=== PATIENT | female | born 1945 | race Asian ===

== ENCOUNTER 2017-11-29 13:01 | Inpatient (IN) ==
[2017-11-29] MEDS ORDERED: cloNIDine HCl 0.1 MG TABLET PO PRN (17:29)
[2017-11-30 05:04] LABS: Basophils # 0.1 K/mcL (0.0-0.2); Basophils % 0.7 %; Eosinophils # 0.2 K/mcL (0.0-0.6); Eosinophils % 2.8 %; Hematocrit 40.1 % (35.3-44.9); Hemoglobin 13.9 g/dL (11.5-15.4); Immature Granulocytes % 0.2 % (0-4); Lymphocytes # 2.4 K/mcL (0.6-4.6); Mean Corpuscular HGB Conc 34.7 g/dL (31.6-35.5); Mean Corpuscular Hemoglobin 30.4 pg (28.0-33.3); Mean Corpuscular Volume 87.7 fL (83.0-100.0); Mean Platelet Volume 8.4 fL (9.4-12.4); Monocytes # 0.8 K/mcL (0.0-1.3); Monocytes % 9.7 %; Neutrophils # 4.7 K/mcL (1.6-8.9); Platelet Count 348 K/mcL (140-400); Red Blood Count 4.57 M/mcL (3.82-4.97); Red Cell Distribution Width 12.6 % (11.5-14.5); Segmented Neutrophils % 57.6 %
[2017-11-30 05:08] LABS: Prothrombin Time 11.7 Seconds (9.4-12.1)
[2017-11-30 05:19] LABS: BUN/Creatinine Ratio 33 (6-26); Blood Urea Nitrogen 22 mg/dL (8-23); Calcium 9.2 mg/dL (8.6-10.3); Carbon Dioxide 26 mEq/L (23-29); Chloride 100 mEq/L (98-107); Glucose 163 mg/dL (70-105); Osmolality,Calculated 289 (280-300); Potassium 3.5 mEq/L (3.5-5.1); Sodium 136 mEq/L (136-145); eGFR For Non-African Americans > 60 (> 60)
[2017-11-30] MEDS: hydroCHLOROthiazide 25 MG TABLET PO SCH (08:45)
[2017-11-30] MEDS: Fenofibrate 54 MG TABLET PO SCH (08:46)
[2017-11-30] MEDS: amLODIPine 5 MG TABLET PO SCH (08:46)
[2017-11-30] MEDS: Aspirin Enteric Coated 81 MG Tablet PO SCH (08:46)
[2017-11-30] MEDS: *HR* Enoxaparin 40 MG/0.4 ML SYRINGE SQ SCH (09:07)
--- NOTE | 2017-11-30 10:36 | Internal Med History&Physical ---
Date of Encounter: 11/30/17 Time of Encounter: 10:34 Assessment and Plan (1) Cerebrovascular accident Current visit: Yes Status: Acute Continue Statin and Plavix. No new neurological deficits. PT and OT, ST to eval and treat. Will follow progress. Follow up with neurology as scheduled. Qualifiers: CVA mechanism: unspecified Qualified Code(s): I63.9 - Cerebral infarction, unspecified (2) DVT prophylaxis Current visit: Yes Status: Acute Continue Lovenox. (3) Hypertension Current visit: Yes Status: Acute Controlled with Norvasc and hydrochlorothiazide. Monitor blood pressure. Qualifiers: Hypertension type: unspecified Qualified Code(s): I10 - Essential (primary ) hypertension (4) Mixed hyperlipidemia Current visit: Yes Status: Acute Continue Statin and fenofibrate. Internal Medicine - H&P: HPI Admitted From: Hospital to Hospital Transfer Plans for Post Hospital Care: Home History of present illness: Ms. Robertson is a 71 year old female admitted to inpatient rehab status post CVA. Patient presented to [facility] on 11/26/2017 4 right-sided weakness and inability to walk. Patient also had slurred speech. Did not seek medical attention until 48 hours later. Patient has no previous past medical history and was not on any prior medications at home. Was found to be hypertensive and the emergency room and elevated random glucose level. Hemoglobin A-1 C of 6.6. Lipids were also significantly elevated. Lives at home alone with . 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 Slight right facial droop and slurred speech. Denies any visual change. No new neurological deficits at this time. Maintaining appetite and hydration. Nursing staff notes patient is pocketing food. Family currently have bedside. States bowels are moving as normal. Plan is to have physical therapy, occupational therapy and speech therapy eval and treat. Then the plan is for patient to discharge to home with . Past Med Surg Social Fam HX - Past Medical History Medical history: hyperlipidemia, hypertension Additional medical history: cervial cancer Psychiatric history: no psych history - Social History Smoking Status: Former smoker Smokeless Tobacco Status: No Alcohol use: rarely Drug use: none Internal Medicine - H&P: Meds Acetaminophen [Tylenol] 650 mg PO Q6HR PRN 11/29/17 [History] Aspirin Enteric Coated [Aspirin EC] 81 mg PO DAILY tablet. 11/29/17 [Rx] Atorvastatin [Lipitor] 80 mg PO HS tablet 11/29/17 [Rx] Clopidogrel [Plavix] 75 mg PO DAILY tablet 11/29/17 [Rx] Fenofibrate [Tricor] 54 mg PO DAILY tablet 11/29/17 [Rx] Sennosides/Docusate Sodium [Senna Plus] 1 each PO DAILY PRN tablet 11/29/17 [Rx ] amLODIPine [Norvasc] 10 mg PO DAILY tablet 11/29/17 [Rx] hydroCHLOROthiazide [Hydrochlorothiazide] 12.5 mg PO DAILY tablet 11/29/17 [Rx] 3 Allergy/AdvReac Type Severity Reaction Status Date / Time No Known Allergies Allergy Verified 11/25/17 19:15 All Systems PM: A 10-system review of systems was performed and is negative for pertinent findings except as documented above in the HPI. - Constitutional Constitutional: no chills, no fever(s), no night sweats - EENT Eyes: no change in vision, no discharge, no pain, no photophobia Ears: no ear discharge, no ear pain, no tinnitus Nose, mouth and throat: no dysphagia, no nasal discharge, no neck pain, no sore throat - Cardiovascular Cardiovascular ROS IM: no chest pain, no diaphoresis, no dyspnea, no lightheadedness, no palpitations, no syncope - Respiratory Respiratory: no cough, no dyspnea, no wheezing, no excessive phlegm production - Gastrointestinal Gastrointestinal: no abdominal pain, no diarrhea, no hematemesis, no hematochezia, no melena, no nausea, no vomiting - Genitourinary Genitourinary: no change in urinary stream, no dysuria, no flank pain, no hematuria - Musculoskeletal Musculoskeletal ROS IM: no numbness, no tingling - Integumentary Integumentary IM: no rash, no unusual bruising - Neurological Neurological ROS: no confusion, no convulsions, no focal weakness, no numbness, no tingling, no tremor(s) - Hematologic/Lymphatic Hematologic/Lymphatic: no easy bruising - Constitutional Vitals: Temp Pulse Resp BP Pulse Ox 98.6 F 78 16 159/80 97 11/30/17 06:00 11/30/17 06:00 11/30/17 06:00 11/30/17 06:00 11/30/17 06:00 General appearance: Present: cooperative, A&O X 3, pleasant, no acute distress, answers questions appropriately Exam: slight right facial droop - Head Head exam: Present: atraumatic, normocephalic - Eye Eye exam: Present: PERRL, conjuntiva pink, sclera anicteric Pupils: Present: PERRL - Neck Neck exam general surgery: Present: supple, trachea midline. Absent: lymphadenopathy - Respiratory Respiratory exam: Present: CTAB. Absent: accessory muscle use, rales, rhonchi, wheezes - Cardiovascular Cardiovascular exam: Present: RRR, +S1, +S2. Absent: diastolic murmur, gallop, rubs, systolic murmur - GI/Abdominal GI/Abdominal exam: Present: normal bowel sounds, soft, no peritoneal signs. Absent: distended, tenderness - Extremities Exam Extremities exam: Present: warm, radial pulses palpable and symmetrical. Absent : calf tenderness, cyanotic, pedal edema Additional comments: Right upper extremity 2/5. no boiler water tester strength. right shoulder strength 3/5, right lower extremity strength 3/5, able to raise leg off bed. LUE and LLE strength 5/5. - Neurological Exam Neurological exam: Present: CN II-XII intact, oriented X3, no focal deficits. Absent: pronater drift, facial droop, speech deficit - Expanded Neurological Exam Patient oriented to: Present: person, place, time Speech: Present: slurred Cranial Nerves: EOM's intact PM: Normal, nystagmus PM: Normal, tongue deviation PM: Normal Coma Scale Motor Response: Obeys Commands Coma Scale Verbal Response: Oriented - Skin Skin exam: Present: dry, intact Internal Med - H&P Results - Labs CBC & Chem 7: 11/30/17 04:55 11/30/17 04:55 Labs: Short CBC 11/30/17 Range/Units 04:55 WBC 8.1 (4.3-11.1) K/mcL Hgb 13.9 (11.5-15.4) g/dL Hct 40.1 (35.3-44.9) % Plt Count 348 (140-400) K/mcL Neutrophils # 4.7 (1.6-8.9) K/mcL BMP 11/30/17 04:55 Sodium 136 Potassium 3.5 Chloride 100 Carbon Dioxide 26 BUN 22 Creatinine 0.66 Glucose 163 H Calcium 9.2
[2017-12-01] MEDS: *HR* Enoxaparin 40 MG/0.4 ML SYRINGE SQ SCH (06:29)
[2017-12-01] MEDS: amLODIPine 5 MG TABLET PO SCH (09:31)
[2017-12-01] MEDS: hydroCHLOROthiazide 25 MG TABLET PO SCH (09:31)
[2017-12-01] MEDS: Aspirin Enteric Coated 81 MG Tablet PO SCH (09:31)
[2017-12-01] MEDS: Fenofibrate 54 MG TABLET PO SCH (09:31)
--- NOTE | 2017-12-01 15:38 | Internal Med Progress Note ---
Date of Encounter: 12/01/17 Time of Encounter: 11:30 - Assessment and plan (1) Cerebrovascular accident Current Visit: Yes Status: Acute Assessment and plan: We will continue her therapies as planned. Safety assessments and process. Qualifiers: CVA mechanism: unspecified Qualified Code(s): I63.9 - Cerebral infarction, unspecified (2) Hypertension Current Visit: Yes Status: Acute Assessment and plan: Moderately controlled. Will follow. 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 (4) Mixed hyperlipidemia Current Visit: Yes Status: Acute Assessment and plan: She continues on statin agent. - Subjective Interval history: Patient without complaint. She is working with therapy, per her. Bowels and bladder are functioning well. Patient has no complaint of chest discomfort, dyspnea, orthopnea, palpitations, nausea or vomiting, constipation or diarrhea, other changes in bowel habits, difficulty with urination, rash or itching, or other new complaints, except as mentioned above. Review of systems is otherwise negative. I discussed management of her care with nursing staff. - Constitutional Vitals: Temp Pulse Resp BP Pulse Ox 98.1 F 92 17 156/85 97 12/01/17 07:36 12/01/17 10:21 12/01/17 10:21 12/01/17 10:21 12/01/17 10:21 General appearance: Present: cooperative, A&O X 3, pleasant, no acute distress, answers questions appropriately Exam: Examination: (Except as mentioned above): General: In no apparent distress. Alert and oriented 3. Nondiaphoretic. Head: Atraumatic and normocephalic. Respiratory: No use of accessory muscles. Lungs are clear throughout. Normal airflow. Cardiovascular: Regular rate and rhythm without murmur appreciated. Abdomen: Bowel sounds are normal. No hepatosplenomegaly mass or tenderness appreciated. Obese and therefore difficult to palpate deeply. Extremities: No cyanosis clubbing or edema. Skin: Warm and non-diaphoretic with no new lesions noted. No change in right sided deficits versus yesterday. Internal Medicine: Result - Labs CBC & Chem 7: 11/30/17 04:55 11/30/17 04:55 - ABG Interpretation ABG results: PT/INR, D-dimer PT 11.7 Seconds (9.4-12.1) 11/30/17 04:55 Consult Discharge Plan - Plan Referrals: NONE,PCP [Primary Care Provider] -
[2017-12-02] MEDS: *HR* Enoxaparin 40 MG/0.4 ML SYRINGE SQ SCH (06:13)
[2017-12-02] MEDS: Aspirin Enteric Coated 81 MG Tablet PO SCH (08:55)
[2017-12-02] MEDS: amLODIPine 5 MG TABLET PO SCH (08:55)
[2017-12-02] MEDS: hydroCHLOROthiazide 25 MG TABLET PO SCH (08:56)
[2017-12-02] MEDS: Fenofibrate 54 MG TABLET PO SCH (08:56)
--- NOTE | 2017-12-02 12:03 | Internal Med Progress Note ---
Date of Encounter: 12/02/17 Time of Encounter: 12:01 - Assessment and plan (1) Cerebrovascular accident Current Visit: Yes Status: Acute Assessment and plan: PT and OT and speech therapy to eval and treat. will follow progress. no new neurological deficits. f/u with neurologist as scheduled. Qualifiers: CVA mechanism: unspecified Qualified Code(s): I63.9 - Cerebral infarction, unspecified (2) DVT prophylaxis Current Visit: Yes Status: Acute Assessment and plan: continue Lovenox. (3) Hypertension Current Visit: Yes Status: Acute Assessment and plan: controlled with current meds. monitor BP. Qualifiers: Hypertension type: unspecified Qualified Code(s): I10 - Essential (primary ) hypertension (4) Mixed hyperlipidemia Current Visit: Yes Status: Acute - Subjective Interval history: Participating well with therapy. Transfers with min assist. Last bowel movement was this morning. Denies any pain or complaints at this time. No new neurological deficits. - Constitutional Vitals: Temp Pulse Resp BP Pulse Ox 98.2 F 90 16 146/82 95 12/02/17 09:00 12/02/17 09:00 12/02/17 09:00 12/02/17 09:00 12/02/17 09:00 General appearance: Present: cooperative, A&O X 3, pleasant, no acute distress, answers questions appropriately Exam: Slight right facial droop, slight slurred speech. - Head Head exam: Present: atraumatic, normocephalic - Eye Eye exam: Present: PERRL, conjuntiva pink, sclera anicteric Pupils: Present: PERRL - Neck Neck exam general surgery: Present: supple, trachea midline. Absent: lymphadenopathy - Respiratory Respiratory exam: Present: CTAB. Absent: accessory muscle use, rales, rhonchi, wheezes - Cardiovascular Cardiovascular exam: Present: RRR, +S1, +S2. Absent: diastolic murmur, gallop, rubs, systolic murmur - GI/Abdominal GI/Abdominal exam: Present: normal bowel sounds, soft, no peritoneal signs. Absent: distended, tenderness - Extremities Exam Extremities exam: Present: warm, radial pulses palpable and symmetrical. Absent : calf tenderness, cyanotic, pedal edema Additional comments: Right hand flaccid. Unable to grasp. Right Elbow to shoulder 3\5 strength. Right lower extremity 4/5. LUE and LLE strength 5/5. - Neurological Exam Neurological exam: Present: CN II-XII intact, oriented X3, no focal deficits. Absent: pronater drift, facial droop, speech deficit - Skin Skin exam: Present: dry, intact Internal Medicine: Result - Labs CBC & Chem 7: 11/30/17 04:55 11/30/17 04:55 - ABG Interpretation ABG results: PT/INR, D-dimer PT 11.7 Seconds (9.4-12.1) 11/30/17 04:55 Consult Discharge Plan - Plan Referrals: NONE,PCP [Primary Care Provider] -
[2017-12-03] MEDS: *HR* Enoxaparin 40 MG/0.4 ML SYRINGE SQ SCH (05:32)
[2017-12-03 06:15] LABS: Hematocrit 40.9 % (35.3-44.9); Mean Corpuscular HGB Conc 34.2 g/dL (31.6-35.5); Mean Corpuscular Hemoglobin 30.4 pg (28.0-33.3); Mean Corpuscular Volume 88.7 fL (83.0-100.0); Mean Platelet Volume 8.8 fL (9.4-12.4); Platelet Count 388 K/mcL (140-400); Red Blood Count 4.61 M/mcL (3.82-4.97); Red Cell Distribution Width 12.4 % (11.5-14.5)
[2017-12-03 06:28] LABS: BUN/Creatinine Ratio 30 (6-26); Blood Urea Nitrogen 21 mg/dL (8-23); Calcium 9.7 mg/dL (8.6-10.3); Carbon Dioxide 29 mEq/L (23-29); Chloride 98 mEq/L (98-107); Glucose 178 mg/dL (70-105); Osmolality,Calculated 281 (280-300); Potassium 3.7 mEq/L (3.5-5.1); Sodium 132 mEq/L (136-145); eGFR For Non-African Americans > 60 (> 60)
[2017-12-03] MEDS: Fenofibrate 54 MG TABLET PO SCH (08:21)
[2017-12-03] MEDS: hydroCHLOROthiazide 25 MG TABLET PO SCH (08:21)
[2017-12-03] MEDS: amLODIPine 5 MG TABLET PO SCH (08:21)
[2017-12-03] MEDS: Aspirin Enteric Coated 81 MG Tablet PO SCH (08:21)
--- NOTE | 2017-12-03 10:36 | Internal Med Progress Note ---
Addendum entered and electronically signed by Dean Teresa MD 12/04/17 13:33: Multiple attempts to see patient yesterday were unsuccessful. Patient not seen for this reason. Original Note: Date of Encounter: 12/03/17 Time of Encounter: 10:34 - Assessment and plan (1) Cerebrovascular accident Current Visit: Yes Status: Acute Assessment and plan: PT and OT and speech therapy to eval and treat. will follow progress. no new neurological deficits. f/u with neurologist as scheduled. Qualifiers: CVA mechanism: unspecified Qualified Code(s): I63.9 - Cerebral infarction, unspecified (2) DVT prophylaxis Current Visit: Yes Status: Acute Assessment and plan: continue Lovenox. (3) Hypertension Current Visit: Yes Status: Acute Assessment and plan: controlled with current meds. monitor BP. Qualifiers: Hypertension type: unspecified Qualified Code(s): I10 - Essential (primary) hypertension (4) Mixed hyperlipidemia Current Visit: Yes Status: Acute Assessment and plan: continue Lipitor. - Time Spent With Patient less than 15 minutes - Subjective Interval history: Participating well with therapy. Transfers with min assist. Last bowel movement was this morning. Denies any pain or complaints at this time. No new neurological deficits. Maintaining appetite and hydration. - Constitutional Vitals: Temp Pulse Resp BP Pulse Ox 98.5 F 84 16 134/69 96 12/03/17 07:39 12/03/17 07:39 12/03/17 07:39 12/03/17 07:39 12/03/17 07:39 General appearance: Present: cooperative, A&O X 3, pleasant, no acute distress, answers questions appropriately - Head Head exam: Present: atraumatic, normocephalic - Eye Eye exam: Present: PERRL, conjuntiva pink, sclera anicteric Pupils: Present: PERRL - Neck Neck exam general surgery: Present: supple, trachea midline. Absent: lymphadenopathy - Respiratory Respiratory exam: Present: CTAB. Absent: accessory muscle use, rales, rhonchi, wheezes - Cardiovascular Cardiovascular exam: Present: RRR, +S1, +S2. Absent: diastolic murmur, gallop, rubs, systolic murmur - GI/Abdominal GI/Abdominal exam: Present: normal bowel sounds, soft, no peritoneal signs. Absent: distended, tenderness - Extremities Exam Extremities exam: Present: warm, radial pulses palpable and symmetrical. Absent: calf tenderness, cyanotic, pedal edema Additional comments: Strength 5\5 left upper and lower extremity. Strength 4\5 right hip and knee. Ankle no movement. right shoulder 5\5 right elbow 5\5, unable to move wrist or grasp hand - Neurological Exam Neurological exam: Present: CN II-XII intact, oriented X3, no focal deficits. Absent: pronater drift, facial droop, speech deficit - Skin Skin exam: Present: dry, intact Internal Medicine: Result - Labs CBC & Chem 7: 12/03/17 05:55 12/03/17 05:55 Labs: Short CBC 12/03/17 Range/Units 05:55 WBC 9.9 (4.3-11.1) K/mcL Hgb 14.0 (11.5-15.4) g/dL Hct 40.9 (35.3-44.9) % Plt Count 388 (140-400) K/mcL BMP 12/03/17 05:55 Sodium 132 L Potassium 3.7 Chloride 98 Carbon Dioxide 29 BUN 21 Creatinine 0.69 Glucose 178 H Calcium 9.7 - ABG Interpretation ABG results: PT/INR, D-dimer PT 11.7 Seconds (9.4-12.1) 11/30/17 04:55 Consult Discharge Plan - Plan Referrals: NONE,PCP [Primary Care Provider] -
--- NOTE | 2017-12-03 16:30 | Psychological Evaluation ---
Date of Encounter: 12/03/17 Time of Encounter: 02:00 History of Present Illness History of present illness: Ms. Robertson is a 71 year old female admitted to inpatient rehab status post CVA. Patient presented to [facility] on 11/26/2017 4 right-sided weakness and inability to walk. Patient also had slurred speech. Did not seek medical attention until 48 hours later. Patient has no previous past medical history and was not on any prior medications at home. Was found to be hypertensive and the emergency room and elevated random glucose level. Hemoglobin A-1 C of 6.6. Lipids were also significantly elevated. Lives at home alone with . 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 Slight right facial droop and slurred speech. Denies any visual change. No new neurological deficits at this time. Maintaining appetite and hydration. Nursing staff notes patient is pocketing food. Plan is to have physical therapy, occupational therapy and speech therapy eval and treat. Then the plan is for patient to discharge to home with . Home Medications and Allergies Acetaminophen [Tylenol] 650 mg PO Q6HR PRN 11/29/17 [History] Aspirin Enteric Coated [Aspirin EC] 81 mg PO DAILY tablet. 11/29/17 [Rx] Atorvastatin [Lipitor] 80 mg PO HS tablet 11/29/17 [Rx] Clopidogrel [Plavix] 75 mg PO DAILY tablet 11/29/17 [Rx] Fenofibrate [Tricor] 54 mg PO DAILY tablet 11/29/17 [Rx] Sennosides/Docusate Sodium [Senna Plus] 1 each PO DAILY PRN tablet 11/29/17 [Rx ] amLODIPine [Norvasc] 10 mg PO DAILY tablet 11/29/17 [Rx] hydroCHLOROthiazide [Hydrochlorothiazide] 12.5 mg PO DAILY tablet 11/29/17 [Rx] 3 Allergy/AdvReac Type Severity Reaction Status Date / Time No Known Allergies Allergy Verified 11/25/17 19:15 Social History - Alcohol Use Alcohol Use: occasionally - Drug Use Drug Use: none ( 47 years and in [place] 46 years. Has 1 son and 2 grandchildren. [employer] school in [place]. ) Cognitive/Emotional Assessment - Cognitive Ability Level of Alertness: Alert (Some confusion with questioning noted. Very difficult to understand what she is communicating. ) Orientation: Person, Place (Memory was 0/3 words after 5min. Able to spell WORLD forward and backward. Knew pres, previous ores and govenor; difficutly after 4 series of serial 3's. Unable to accurately calculate simple math in her head.) Ability to Follow Directions: Good - Emotional Status Mood Description: Euthymic/stable, Anxious Affect Description: Full range (Displays Aphasia) Assessment & Plan - Diagnosis (1) Adjustment disorder with anxiety - Prognosis Prognosis: Fair Procedures - Intervention Interventions: Supportive Counseling - Participants Therapy Participant: Patient - Session Time Session Start Time: 02:00 Session Stop Time: 02:30
--- NOTE | 2017-12-04 13:36 | Internal Med Progress Note ---
Date of Encounter: 12/04/17 Time of Encounter: 13:34 - Assessment and plan (1) Cerebrovascular accident Current Visit: Yes Status: Acute Assessment and plan: We will continue therapies as per plan. She will require several more weeks? Qualifiers: CVA mechanism: unspecified Qualified Code(s): I63.9 - Cerebral infarction, unspecified (2) Hypertension Current Visit: Yes Status: Acute Assessment and plan: Control is better. Will follow. 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 (4) Mixed hyperlipidemia Current Visit: Yes Status: Acute Assessment and plan: She continues on statin agent. - Subjective Interval history: Patient without complaint. Her broken Romansh makes communication difficult but she seems to have no issues. She states that she needs exercise only for her right extremities. Bowels are moving okay. No other issues. Patient has no complaint of chest discomfort, dyspnea, orthopnea, palpitations, nausea or vomiting, constipation or diarrhea, other changes in bowel habits, difficulty with urination, rash or itching, or other new complaints, except as mentioned above. Review of systems is otherwise negative. I discussed management of her care with nursing staff. - Constitutional Vitals: Temp Pulse Resp BP Pulse Ox 97.6 F 87 14 144/73 97 12/03/17 19:19 12/03/17 19:19 12/03/17 19:19 12/03/17 19:19 12/03/17 19:19 General appearance: Present: answers questions appropriately Exam: Examination: (Except as mentioned above): General: In no apparent distress. Alert and oriented 3. Nondiaphoretic. Head: Atraumatic and normocephalic. Respiratory: No use of accessory muscles. Lungs are clear throughout. Normal airflow. Cardiovascular: Regular rate and rhythm without murmur appreciated. Abdomen: Bowel sounds are normal. No hepatosplenomegaly mass or tenderness appreciated. Extremities: No cyanosis clubbing or edema. Skin: Warm and non-diaphoretic with no new lesions noted. Neurologic: Minimal right shoulder and hip abduction/flexion. Distal extremity function is absent. Internal Medicine: Result - Labs CBC & Chem 7: 12/03/17 05:55 12/03/17 05:55 - ABG Interpretation ABG results: PT/INR, D-dimer PT 11.7 Seconds (9.4-12.1) 11/30/17 04:55 Consult Discharge Plan - Plan Referrals: NONE,PCP [Primary Care Provider] -
[2017-12-04] MEDS ORDERED: Fenofibrate 54 MG TABLET PO ONE (14:16)
[2017-12-04] MEDS ORDERED: *HR* Enoxaparin 40 MG/0.4 ML SYRINGE SQ ONE (14:16)
[2017-12-04] MEDS ORDERED: amLODIPine 5 MG TABLET PO ONE (14:16)
[2017-12-04] MEDS ORDERED: Aspirin Enteric Coated 81 MG Tablet PO ONE (14:16)
[2017-12-04] MEDS ORDERED: hydroCHLOROthiazide 25 MG TABLET PO ONE (14:16)
[2017-12-04] MEDS: Aspirin Enteric Coated 81 MG Tablet PO SCH (19:44)
[2017-12-04] MEDS: *HR* Enoxaparin 40 MG/0.4 ML SYRINGE SQ SCH (19:44)
[2017-12-04] MEDS: hydroCHLOROthiazide 25 MG TABLET PO SCH (19:45)
[2017-12-04] MEDS: amLODIPine 5 MG TABLET PO SCH (19:45)
[2017-12-04] MEDS: Fenofibrate 54 MG TABLET PO SCH (19:45)
[2017-12-05] MEDS: *HR* Enoxaparin 40 MG/0.4 ML SYRINGE SQ SCH (05:42)
[2017-12-05] MEDS: Aspirin Enteric Coated 81 MG Tablet PO SCH (10:23)
[2017-12-05] MEDS: hydroCHLOROthiazide 25 MG TABLET PO SCH (10:23)
[2017-12-05] MEDS: amLODIPine 5 MG TABLET PO SCH (10:23)
[2017-12-05] MEDS: Fenofibrate 54 MG TABLET PO SCH (10:24)
--- NOTE | 2017-12-05 12:46 | Internal Med Progress Note ---
Date of Encounter: 12/05/17 Time of Encounter: 12:44 - Assessment and plan (1) Cerebrovascular accident Current Visit: Yes Status: Acute Assessment and plan: We will continue therapies as per plan. Qualifiers: CVA mechanism: unspecified Qualified Code(s): I63.9 - Cerebral infarction, unspecified (2) Hypertension Current Visit: Yes Status: Acute Assessment and plan: Control is adequate. 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 (4) Mixed hyperlipidemia Current Visit: Yes Status: Acute Assessment and plan: She continues on statin agent. (5) Constipation Current Visit: Yes Status: Acute Assessment and plan: Patient has MiraLAX as needed and will give at least a half dose of magnesium citrate today. Qualifiers: Constipation type: slow transit constipation Qualified Code(s): K59.01 - Slow transit constipation - Subjective Interval history: The patient notes that she has not had a bowel movement since her arrival here, in fact, for 5 days. She has no other complaints and is participating well with therapy. Patient has no complaint of chest discomfort, dyspnea, orthopnea, palpitations, nausea or vomiting, constipation or diarrhea, other changes in bowel habits, difficulty with urination, rash or itching, or other new complaints, except as mentioned above. Review of systems is otherwise negative. I discussed management of her care with nursing staff. - Constitutional Vitals: Temp Pulse Resp BP Pulse Ox 98.2 F 93 16 134/76 96 12/05/17 07:20 12/05/17 07:20 12/05/17 07:20 12/05/17 07:20 12/05/17 07:20 Exam: Examination: (Except as mentioned above): General: In no apparent distress. Alert and oriented 3. Nondiaphoretic. Head: Atraumatic and normocephalic. Respiratory: No use of accessory muscles. Lungs are clear throughout. Normal airflow. Cardiovascular: Regular rate and rhythm without murmur appreciated. Abdomen: Bowel sounds are normal. No hepatosplenomegaly mass or tenderness appreciated. Obese and therefore difficult to palpate deeply. Patient is examined upright in chair and this also limits exam. Extremities: No cyanosis clubbing or edema. Skin: Warm and non-diaphoretic with no new lesions noted. Neurologic: Patient still with only hip and shoulder motion at right. She has mild left facial weakness. Grasp strength and all foot and ankle strength is missing. No change from admission. Internal Medicine: Result - Labs CBC & Chem 7: 12/03/17 05:55 12/03/17 05:55 - ABG Interpretation ABG results: PT/INR, D-dimer PT 11.7 Seconds (9.4-12.1) 11/30/17 04:55 Consult Discharge Plan - Plan Referrals: NONE,PCP [Primary Care Provider] -
[2017-12-06] MEDS: *HR* Enoxaparin 40 MG/0.4 ML SYRINGE SQ SCH (06:28)
[2017-12-06] MEDS: hydroCHLOROthiazide 25 MG TABLET PO SCH (08:14)
[2017-12-06] MEDS: Aspirin Enteric Coated 81 MG Tablet PO SCH (08:14)
[2017-12-06] MEDS: amLODIPine 5 MG TABLET PO SCH (08:14)
[2017-12-06] MEDS: Fenofibrate 54 MG TABLET PO SCH (08:14)
--- NOTE | 2017-12-06 14:57 | Internal Med Progress Note ---
Date of Encounter: 02/05/18 Time of Encounter: 14:40 - Assessment and plan (1) Cerebrovascular accident Current Visit: Yes Status: Acute Assessment and plan: Continue therapies as planned. Qualifiers: CVA mechanism: unspecified Qualified Code(s): I63.9 - Cerebral infarction, unspecified (2) Hypertension Current Visit: Yes Status: Acute Assessment and plan: Continue current regimen, adjust as appropriate/needed. 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 (4) Mixed hyperlipidemia Current Visit: Yes Status: Acute Assessment and plan: Continue statin. (5) Constipation Current Visit: Yes Status: Acute Assessment and plan: Continue PRN Senna Plus. Qualifiers: Constipation type: slow transit constipation Qualified Code(s): K59.01 - Slow transit constipation - Time Spent With Patient less than 15 minutes - Subjective Interval history: Feeling well and doing well, no particular complaint at this time. - Constitutional Vitals: Temp Pulse Resp BP Pulse Ox 98.3 F 90 16 150/76 96 12/06/17 07:03 12/06/17 07:03 12/06/17 07:03 12/06/17 07:03 12/06/17 07:03 General appearance: Present: answers questions appropriately Exam: Gen: A&Ox3, NAD. HEENT: NCAT. Neck: No palpable lymphadenopathy or thyromegaly. CV: RRR, S1S2. 2/6, systolic murmur appreciated. Lungs: CTAB. Abd: (+)BS. NDNT. Neuro: RUE and RLE weakness noted. Skin: No rash. Ext: No pitting edema. Internal Medicine: Result - Labs CBC & Chem 7: 12/03/17 05:55 12/03/17 05:55 - ABG Interpretation ABG results: PT/INR, D-dimer PT 11.7 Seconds (9.4-12.1) 11/30/17 04:55 Consult Discharge Plan - Plan Referrals: NONE,PCP [Primary Care Provider] -
[2017-12-07] MEDS: *HR* Enoxaparin 40 MG/0.4 ML SYRINGE SQ SCH (05:01)
[2017-12-07] MEDS: Fenofibrate 54 MG TABLET PO SCH (08:27)
[2017-12-07] MEDS: Aspirin Enteric Coated 81 MG Tablet PO SCH (08:27)
[2017-12-07] MEDS: amLODIPine 5 MG TABLET PO SCH (08:27)
[2017-12-07] MEDS: hydroCHLOROthiazide 25 MG TABLET PO SCH (08:27)
--- NOTE | 2017-12-07 13:15 | Internal Med Progress Note ---
Date of Encounter: 12/07/17 Time of Encounter: 12:45 - Assessment and plan (1) Cerebrovascular accident Current Visit: Yes Status: Acute Assessment and plan: Continue therapies as planned. Qualifiers: CVA mechanism: unspecified Qualified Code(s): I63.9 - Cerebral infarction, unspecified (2) Hypertension Current Visit: Yes Status: Acute Assessment and plan: Continue current regimen, adjust as appropriate/needed. 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 (4) Mixed hyperlipidemia Current Visit: Yes Status: Acute Assessment and plan: Continue statin. (5) Constipation Current Visit: Yes Status: Acute Assessment and plan: Continue PRN Senna Plus. Qualifiers: Constipation type: slow transit constipation Qualified Code(s): K59.01 - Slow transit constipation - Subjective Interval history: Feeling well and doing well, no particular complaint at this time. Just had a BM prior to this encounter. - Constitutional Vitals: Temp Pulse Resp BP Pulse Ox 98.4 F 88 16 133/80 96 12/06/17 21:00 12/06/17 21:00 12/06/17 21:00 12/06/17 21:00 12/06/17 21:00 General appearance: Present: answers questions appropriately Exam: Gen: A&Ox3, NAD. HEENT: NCAT. Neck: No palpable lymphadenopathy or thyromegaly. CV: RRR, S1S2. 2/6, systolic murmur appreciated. Lungs: CTAB. Abd: (+)BS. NDNT. Neuro: RUE and RLE weakness noted. Skin: No rash. Ext: No pitting edema. Internal Medicine: Result - Labs CBC & Chem 7: 12/03/17 05:55 12/03/17 05:55 - ABG Interpretation ABG results: PT/INR, D-dimer PT 11.7 Seconds (9.4-12.1) 11/30/17 04:55 Consult Discharge Plan - Plan Referrals: NONE,PCP [Primary Care Provider] -
[2017-12-08] MEDS: Acetaminophen 325 MG TABLET PO PRN (03:12)
[2017-12-08 05:57] LABS: Basophils # 0.1 K/mcL (0.0-0.2); Basophils % 0.8 %; Eosinophils # 0.3 K/mcL (0.0-0.6); Eosinophils % 3.7 %; Hematocrit 33.5 % (35.3-44.9); Hemoglobin 11.6 g/dL (11.5-15.4); Immature Granulocytes % 0.3 % (0-4); Lymphocytes # 1.6 K/mcL (0.6-4.6); Lymphocytes % 22.1 %; Mean Corpuscular HGB Conc 34.6 g/dL (31.6-35.5); Mean Corpuscular Hemoglobin 29.9 pg (28.0-33.3); Mean Corpuscular Volume 86.3 fL (83.0-100.0); Mean Platelet Volume 8.5 fL (9.4-12.4); Monocytes # 0.8 K/mcL (0.0-1.3); Neutrophils # 4.5 K/mcL (1.6-8.9); Platelet Count 364 K/mcL (140-400); Red Blood Count 3.88 M/mcL (3.82-4.97); Red Cell Distribution Width 12.1 % (11.5-14.5); Segmented Neutrophils % 62.1 %
[2017-12-08 06:13] LABS: BUN/Creatinine Ratio 25 (6-26); Blood Urea Nitrogen 18 mg/dL (8-23); Calcium 9.4 mg/dL (8.6-10.3); Carbon Dioxide 28 mEq/L (23-29); Chloride 96 mEq/L (98-107); Glucose 182 mg/dL (70-105); Osmolality,Calculated 281 (280-300); Potassium 3.6 mEq/L (3.5-5.1); Sodium 132 mEq/L (136-145); eGFR For Non-African Americans > 60 (> 60)
[2017-12-08] MEDS: *HR* Enoxaparin 40 MG/0.4 ML SYRINGE SQ SCH (06:23)
[2017-12-08] MEDS: Fenofibrate 54 MG TABLET PO SCH (08:01)
[2017-12-08] MEDS: Aspirin Enteric Coated 81 MG Tablet PO SCH (08:01)
[2017-12-08] MEDS: amLODIPine 5 MG TABLET PO SCH (08:01)
[2017-12-08] MEDS: hydroCHLOROthiazide 25 MG TABLET PO SCH (08:02)
--- NOTE | 2017-12-08 11:44 | Internal Med Progress Note ---
Addendum entered and electronically signed by Dean Teresa MD 12/08/17 11:51: I have personally performed a face to face evaluation on this patient. I have r eviewed and agree with the care plan. History and Exam by me shows: Patient is feeling well and has no problems. She is moving the bowels, well. Discussed care with other providers and/or nursing. Patient has no complaint of chest discomfort, dyspnea, orthopnea, palpitations, nausea or vomiting, constipation or diarrhea, other changes in bowel habits, difficulty with urination, rash or itching, or other new complaints, except as mentioned above. Review of systems is otherwise negative. Examination: (Except as mentioned above): General: In no apparent distress. Alert and oriented 3. Nondiaphoretic. Head: Atraumatic and normocephalic. Respiratory: No use of accessory muscles. Lungs are clear throughout. Normal airflow. Cardiovascular: Regular rate and rhythm without murmur appreciated. Abdomen: Bowel sounds are normal. No hepatosplenomegaly mass or tenderness appreciated. Obese and therefore difficult to palpate deeply. Extremities: No cyanosis clubbing or edema. Patient is examined upright in chair and this also limits exam. Skin: Warm and non-diaphoretic with no new lesions noted. Neurologic: The patient has mild grasp strength in her right hand, for the first time. This excites her. We will continue therapies as planned and monitor her hemoglobin, ongoing. Original Note: Date of Encounter: 12/08/17 Time of Encounter: 11:42 - Assessment and plan (1) Cerebrovascular accident Current Visit: Yes Status: Acute Assessment and plan: PT and OT and speech therapy to eval and treat. will follow progress. no new neurological deficits. f/u with neurologist as scheduled. Qualifiers: CVA mechanism: unspecified Qualified Code(s): I63.9 - Cerebral infarction, unspecified (2) DVT prophylaxis Current Visit: Yes Status: Acute Assessment and plan: continue Lovenox. (3) Hypertension Current Visit: Yes Status: Acute Assessment and plan: controlled with current meds. monitor BP. Qualifiers: Hypertension type: unspecified Qualified Code(s): I10 - Essential (primary) hypertension (4) Mixed hyperlipidemia Current Visit: Yes Status: Acute Assessment and plan: continue Lipitor. - Time Spent With Patient less than 15 minutes - Subjective Interval history: Participating well with therapy. Transfers with min assist. Last bowel movement was this morning. Denies any pain or complaints at this time. No new neurological deficits. Maintaining appetite and hydration. wearing brace to right foot. - Constitutional Vitals: Temp Pulse Resp BP Pulse Ox 97.7 F 84 16 151/72 95 12/08/17 06:42 12/08/17 06:42 12/08/17 06:42 12/08/17 06:42 12/08/17 06:42 General appearance: Present: A&O X 3, pleasant, no acute distress, answers questions appropriately Exam: Slight facial droop right side. Mild dysarthria. But hard to tell due to [place] dialect. - Head Head exam: Present: atraumatic, normocephalic - Eye Eye exam: Present: PERRL, conjuntiva pink, sclera anicteric Pupils: Present: PERRL - Neck Neck exam general surgery: Present: supple, trachea midline. Absent: lymphadenopathy - Respiratory Respiratory exam: Present: CTAB. Absent: accessory muscle use, rales, rhonchi, wheezes - Cardiovascular Cardiovascular exam: Present: RRR, +S1, +S2. Absent: diastolic murmur, gallop, rubs, systolic murmur - GI/Abdominal GI/Abdominal exam: Present: normal bowel sounds, soft, no peritoneal signs. Absent: distended, tenderness - Extremities Exam Extremities exam: Present: warm, radial pulses palpable and symmetrical. Absent: calf tenderness, cyanotic, pedal edema Additional comments: Right upper extremity 3\5 strength. Right hand flaccid. Right lower extremity strength 3\5. Right foot flaccid. - Neurological Exam Neurological exam: Present: CN II-XII intact, oriented X3, no focal deficits. Absent: pronater drift, facial droop, speech deficit - Skin Skin exam: Present: dry, intact Internal Medicine: Result - Labs CBC & Chem 7: 12/08/17 05:45 12/08/17 05:45 Labs: Short CBC 12/08/17 Range/Units 05:45 WBC 7.3 (4.3-11.1) K/mcL Hgb 11.6 D (11.5-15.4) g/dL Hct 33.5 L (35.3-44.9) % Plt Count 364 (140-400) K/mcL Neutrophils # 4.5 (1.6-8.9) K/mcL BMP 12/08/17 05:45 Sodium 132 L Potassium 3.6 Chloride 96 L Carbon Dioxide 28 BUN 18 Creatinine 0.73 Glucose 182 H Calcium 9.4 - ABG Interpretation ABG results: PT/INR, D-dimer PT 11.7 Seconds (9.4-12.1) 11/30/17 04:55 Consult Discharge Plan - Plan Referrals: NONE,PCP [Primary Care Provider] -
[2017-12-09] MEDS: *HR* Enoxaparin 40 MG/0.4 ML SYRINGE SQ SCH (05:19)
[2017-12-09] MEDS: Aspirin Enteric Coated 81 MG Tablet PO SCH (08:05)
[2017-12-09] MEDS: amLODIPine 5 MG TABLET PO SCH (08:06)
[2017-12-09] MEDS: Fenofibrate 54 MG TABLET PO SCH (08:06)
[2017-12-09] MEDS: hydroCHLOROthiazide 25 MG TABLET PO SCH (08:06)
--- NOTE | 2017-12-09 11:26 | Internal Med Progress Note ---
Addendum entered and electronically signed by Andrae Lane DO 12/09/17 13:09: I have personally performed a face to face evaluation on this patient. I have reviewed and agree with the care plan. History and Exam by me shows: Original Note: Date of Encounter: 12/09/17 Time of Encounter: 10:50 - Assessment and plan (1) Cerebrovascular accident Current Visit: Yes Status: Acute Assessment and plan: Improving. PT and OT and speech therapy to eval and treat. will follow progress. no new neurological deficits. f/u with neurologist as scheduled. Qualifiers: CVA mechanism: unspecified Qualified Code(s): I63.9 - Cerebral infarction, unspecified (2) DVT prophylaxis Current Visit: Yes Status: Acute Assessment and plan: continue Lovenox. (3) Hypertension Current Visit: Yes Status: Acute Assessment and plan: controlled with current meds. monitor BP. Qualifiers: Hypertension type: unspecified Qualified Code(s): I10 - Essential (primary) hypertension (4) Mixed hyperlipidemia Current Visit: Yes Status: Acute Assessment and plan: continue Lipitor. - Time Spent With Patient less than 15 minutes - Subjective Interval history: Participating well with therapy. Transfers with CGA assist. mod assist for dresing. Last bowel movement was this morning. Denies any pain or complaints at this time. No new neurological deficits. Maintaining appetite and hydration. wearing brace to right foot. able to make slight fist with right hand. - Constitutional Vitals: Temp Pulse Resp BP Pulse Ox 98.7 F 90 16 146/65 99 12/09/17 07:28 12/09/17 07:28 12/09/17 07:28 12/09/17 07:28 12/09/17 07:28 General appearance: Present: A&O X 3, pleasant, no acute distress, answers questions appropriately - Head Head exam: Present: atraumatic, normocephalic - Eye Eye exam: Present: PERRL, conjuntiva pink, sclera anicteric Pupils: Present: PERRL - Neck Neck exam general surgery: Present: supple, trachea midline. Absent: lymphadenopathy - Respiratory Respiratory exam: Present: CTAB. Absent: accessory muscle use, rales, rhonchi, wheezes - Cardiovascular Cardiovascular exam: Present: RRR, +S1, +S2. Absent: diastolic murmur, gallop, rubs, systolic murmur - GI/Abdominal GI/Abdominal exam: Present: normal bowel sounds, soft, no peritoneal signs. A bsent: distended, tenderness - Extremities Exam Extremities exam: Present: warm, radial pulses palpable and symmetrical. Absent: calf tenderness, cyanotic, pedal edema Additional comments: Right upper and right lower extremity strength 3\5 right hand 1/5 - Neurological Exam Neurological exam: Present: CN II-XII intact, oriented X3, no focal deficits. Absent: pronater drift, facial droop, speech deficit - Skin Skin exam: Present: dry, intact Internal Medicine: Result - Labs CBC & Chem 7: 12/08/17 05:45 12/08/17 05:45 - ABG Interpretation ABG results: PT/INR, D-dimer PT 11.7 Seconds (9.4-12.1) 11/30/17 04:55 Consult Discharge Plan - Plan Referrals: NONE,PCP [Primary Care Provider] -
[2017-12-10] MEDS: *HR* Enoxaparin 40 MG/0.4 ML SYRINGE SQ SCH (04:20)
[2017-12-10] MEDS: hydroCHLOROthiazide 25 MG TABLET PO SCH (08:03)
[2017-12-10] MEDS: Fenofibrate 54 MG TABLET PO SCH (08:03)
[2017-12-10] MEDS: Aspirin Enteric Coated 81 MG Tablet PO SCH (08:03)
[2017-12-10] MEDS: amLODIPine 5 MG TABLET PO SCH (08:04)
--- NOTE | 2017-12-10 10:08 | Internal Med Progress Note ---
Addendum entered and electronically signed by Andrae Lane DO 12/10/17 11:27: I have personally performed a face to face evaluation on this patient. I have reviewed and agree with the care plan. History and Exam by me shows: Original Note: Date of Encounter: 12/10/17 Time of Encounter: 10:03 - Assessment and plan (1) Cerebrovascular accident Current Visit: Yes Status: Acute Assessment and plan: No acute issues. Patient continues to have improving movement on right upper extremity. Patient states that she has noted increased movement on right hand with continues to have a 2/5 muscle strength on grasp. Patient continues to progress well with physical therapy. Denies any acute neurological deficits. We will continue with current plan of care. We will continue with current medications Qualifiers: CVA mechanism: unspecified Qualified Code(s): I63.9 - Cerebral infarction, unspecified (2) Hypertension Current Visit: Yes Status: Chronic Assessment and plan: Vital signs have remained stable. We will continue with current medications. Qualifiers: Hypertension type: unspecified Qualified Code(s): I10 - Essential (primary) hypertension (3) Adjustment disorder with anxiety Current Visit: Yes Status: Acute Assessment and plan: No acute issues during her stay at this facility. Patient appears relaxed and no behavior issues have been reported by nursing. Continue with current medications - Time Spent With Patient less than 15 minutes - Subjective Interval history: Patient appears relaxed and currently denies any discomforts or shortness of breath. Patient states that she believes that she is regaining some movement in her right hand and demonstrated hand grasp. Patient states that she feels physical therapy is progressing well. - Constitutional Vitals: Temp Pulse Resp BP Pulse Ox 97.9 F 82 16 146/72 96 12/10/17 06:53 12/10/17 06:53 12/10/17 06:53 12/10/17 06:53 12/10/17 06:53 General appearance: Present: A&O X 3, pleasant, no acute distress, answers questions appropriately - Head Head exam: Present: atraumatic, normocephalic - Eye Eye exam: Present: PERRL, conjuntiva pink, sclera anicteric Pupils: Present: PERRL - Neck Neck exam general surgery: Present: supple, trachea midline. Absent: lymphadenopathy - Respiratory Respiratory exam: Present: CTAB. Absent: accessory muscle use, rales, rhonchi, wheezes - Cardiovascular Cardiovascular exam: Present: RRR, +S1, +S2. Absent: diastolic murmur, gallop, rubs, systolic murmur - GI/Abdominal GI/Abdominal exam: Present: normal bowel sounds, soft, no peritoneal signs. Absent: distended, tenderness - Extremities Exam Extremities exam: Present: warm, radial pulses palpable and symmetrical. Absent: calf tenderness, cyanotic, pedal edema - Neurological Exam Neurological exam: Present: CN II-XII intact, oriented X3, facial droop. Absent: pronater drift, speech deficit Additional comments: Speech currently is clear and appropriate. Noted is very slight right facial droop. RUE shows 3/5 MS on ext/flex for prox/dist. Noted 2/5 MS on right hand grasp. RLE 4+/5 MS prox/dist on flex/ext. LE 5/5. No decreased sensation noted. - Skin Skin exam: Present: dry, intact Internal Medicine: Result - Labs CBC & Chem 7: 12/08/17 05:45 12/08/17 05:45 - ABG Interpretation ABG results: PT/INR, D-dimer PT 11.7 Seconds (9.4-12.1) 11/30/17 04:55 Consult Discharge Plan - Plan Referrals: NONE,PCP [Primary Care Provider] -
--- NOTE | 2017-12-10 14:19 | Physcial Medicine-Consult Note ---
Date of Encounter: 12/10/17 Time of Encounter: 13:55 Physical Medicine - AP (1) Cerebrovascular accident Status: Acute Assessment and plan: Working hard with PT, OT, and Speech. Making good gains with function. Continuing therapies. May need an AFO RLE at discharge. Code(s): I63.9 - Cerebral infarction, unspecified SNOMED Code(s): 877551336 Physical Medicine - HPI - Data of Consult Requesting Physician: Dean Teresa MD Primary Care Provider: PCP NONE - Consult Narrative History of present illness: Ms. Robertson is a 71 year old RH female admitted to [facility] with left CVA, right hemiplegia, dysphagia, dysarthria. She was admitted acute to [facility] on 11/26/2017. She had accelerated HTN. 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 She was treated with HTN management, antiplatelets, and cholesterol lowering agents. She has been making good progress on the rehab unit with continuing return in the right UE and LE. She is moving her bowels and passing her urine without difficulty. Her slurred speech is improving. Dysphagia improving. CC: Dean Teresa MD Past Med Surg Social Fam HX - Past Medical History Attestation: Yes The following information was validated with the patient. Medical history: hyperlipidemia, hypertension Additional medical history: cervial cancer Psychiatric history: no psych history - Social History Smoking Status: Former smoker Smokeless Tobacco Status: No Alcohol use: occasionally Drug use: none Medications and Allergies Acetaminophen [Tylenol] 650 mg PO Q6HR PRN 11/29/17 [History] Aspirin Enteric Coated [Aspirin EC] 81 mg PO DAILY tablet. 11/29/17 [Rx] Atorvastatin [Lipitor] 80 mg PO HS tablet 11/29/17 [Rx] Clopidogrel [Plavix] 75 mg PO DAILY tablet 11/29/17 [Rx] Fenofibrate [Tricor] 54 mg PO DAILY tablet 11/29/17 [Rx] Sennosides/Docusate Sodium [Senna Plus] 1 each PO DAILY PRN tablet 11/29/17 [Rx] amLODIPine [Norvasc] 10 mg PO DAILY tablet 11/29/17 [Rx] hydroCHLOROthiazide [Hydrochlorothiazide] 12.5 mg PO DAILY tablet 11/29/17 [Rx] Allergy/AdvReac Type Severity Reaction Status Date / Time No Known Allergies Allergy Verified 11/25/17 19:15 All systems: reviewed and no additional remarkable complaints except as stated Physical Medicine - Exam - Constitutional Vitals: Temp Pulse Resp BP Pulse Ox 97.9 F 82 16 146/72 96 12/10/17 06:53 12/10/17 06:53 12/10/17 06:53 12/10/17 06:53 12/10/17 06:53 General appearance: average body habitus, cooperative, no acute distress - Head Head exam: Present: atraumatic, normocephalic - Eye Eye exam: Present: EOMI - ENT ENT exam: Present: mucous membranes moist Additional comments: Tongue protrudes to right. - Neck Neck exam: Present: full ROM - Respiratory Respiratory exam: Present: CTAB - Cardiovascular Cardiovascular exam: Present: RRR. Absent: diastolic murmur, rubs, systolic murmur - GI/Abdominal GI/Abdominal exam: Present: normal bowel sounds, soft - Extremities Exam Extremities exam: Present: joint swelling. Absent: calf tenderness, pedal edema Additional comments: OA multiple joints. Right UE weak 3/5 proximal, 2/5 handgrasp. RLE 3/5 all.No CCE. - Neurological Exam Neurological exam: Present: abnormal gait, alert, motor sensory deficit, oriented X3, pronater drift, facial droop, speech deficit. Absent: CN II-XII intact, reflexes normal, strengths equal and symetr throughout - Psychiatric Psychiatric exam: Present: normal affect, normal mood - Skin Skin exam: Present: intact Physical Medicine - Results - Labs CBC & Chem 7: 12/08/17 05:45 12/08/17 05:45 Labs: Hyponatremia, Hyperglycemia. Consult Discharge Plan - Plan Referrals: NONE,PCP [Primary Care Provider] -
[2017-12-11] MEDS: *HR* Enoxaparin 40 MG/0.4 ML SYRINGE SQ SCH (06:31)
[2017-12-11] MEDS: hydroCHLOROthiazide 25 MG TABLET PO SCH (09:40)
[2017-12-11] MEDS: Fenofibrate 54 MG TABLET PO SCH (09:40)
[2017-12-11] MEDS: amLODIPine 5 MG TABLET PO SCH (09:40)
[2017-12-11] MEDS: Aspirin Enteric Coated 81 MG Tablet PO SCH (09:40)
--- NOTE | 2017-12-11 11:57 | Internal Med Progress Note ---
Date of Encounter: 12/11/17 Time of Encounter: 11:55 - Assessment and plan (1) Cerebrovascular accident Current Visit: Yes Status: Acute Assessment and plan: No acute issues. Patient continues to have improving movement on right upper extremity. Patient states that she has noted increased movement on right hand with continues to have a 3/5 muscle strength on grasp. Patient continues to progress well with physical therapy and was observed ambulating with wheeled walker.. Denies any acute neurological deficits. We will continue with current plan of care. We will continue with current medications Qualifiers: CVA mechanism: unspecified Qualified Code(s): I63.9 - Cerebral infarction, unspecified (2) Hypertension Current Visit: Yes Status: Chronic Assessment and plan: Vital signs have remained stable. We will continue with current medications. Qualifiers: Hypertension type: unspecified Qualified Code(s): I10 - Essential (primary) hypertension (3) Adjustment disorder with anxiety Current Visit: Yes Status: Acute Assessment and plan: No acute issues during her stay at this facility. Patient appears relaxed and no behavior issues have been reported by nursing. Continue with current medications - Time Spent With Patient less than 15 minutes - Subjective Interval history: Patient appears relaxed and currently denies any discomforts or shortness of breath. Patient states that she believes that she is regaining some movement in her right hand and demonstrated hand grasp. Patient states that she feels physical therapy is progressing well. - Constitutional Vitals: Temp Pulse Resp BP Pulse Ox 98.1 F 83 18 140/73 96 12/11/17 07:26 12/11/17 07:26 12/11/17 07:26 12/11/17 07:26 12/11/17 07:26 General appearance: Present: A&O X 3, pleasant, no acute distress, answers questions appropriately - Head Head exam: Present: atraumatic, normocephalic - Eye Eye exam: Present: PERRL, conjuntiva pink, sclera anicteric Pupils: Present: PERRL - Neck Neck exam general surgery: Present: supple, trachea midline. Absent: lymphadenopathy - Respiratory Respiratory exam: Present: CTAB. Absent: accessory muscle use, rales, rhonchi, wheezes - Cardiovascular Cardiovascular exam: Present: RRR, +S1, +S2. Absent: diastolic murmur, gallop, rubs, systolic murmur - GI/Abdominal GI/Abdominal exam: Present: normal bowel sounds, soft, no peritoneal signs. Absent: distended, tenderness - Extremities Exam Extremities exam: Present: warm, radial pulses palpable and symmetrical. Absent: calf tenderness, cyanotic, pedal edema - Neurological Exam Neurological exam: Present: CN II-XII intact, oriented X3. Absent: pronater drift, facial droop, speech deficit Additional comments: Patient is to show right hemiparesis with right upper extremity muscle strength at 3/5. Improved right hand grasp currently at 3/5. Right lower extremity muscle strength at 4/5. Left extremities muscle strength 5/5. - Skin Skin exam: Present: dry, intact Internal Medicine: Result - Labs CBC & Chem 7: 12/08/17 05:45 12/08/17 05:45 - ABG Interpretation ABG results: PT/INR, D-dimer PT 11.7 Seconds (9.4-12.1) 11/30/17 04:55 Consult Discharge Plan - Plan Referrals: NONE,PCP [Primary Care Provider] -
--- NOTE | 2017-12-11 13:48 | Internal Med Progress Note ---
Date of Encounter: 12/11/17 Time of Encounter: 13:46 - Assessment and plan (1) Cerebrovascular accident Current Visit: Yes Status: Acute Assessment and plan: CVA with left side weakness most of weakness is in her arm lower limb seems to have improved . Deviation face also improving minimal on left side dysarthia almost none although some times it feels like that there is a slur overall she is improving and tolerating her PT well Qualifiers: CVA mechanism: unspecified Qualified Code(s): I63.9 - Cerebral infarction, unspecified (2) Hypertension Current Visit: Yes Status: Chronic Assessment and plan: BP stable no new change Qualifiers: Hypertension type: essential hypertension Qualified Code(s): I10 - Essential (primary) hypertension (3) Hyponatremia Current Visit: Yes Status: Acute Assessment and plan: PT IS ON HTCZ which could be the main reason for low sodium Will follow and if needed could switch to another medication for her BP. Overall no sideefects at the present time - Subjective Interval history: seen as cross coverage no acute issues getting her rehab seems to tolerating food well .Strength in her arm and ability to speak keeps improving No acute iss ues at the present time - Constitutional Vitals: Temp Pulse Resp BP Pulse Ox 98.1 F 83 18 140/73 96 12/11/17 07:26 12/11/17 07:26 12/11/17 07:26 12/11/17 07:26 12/11/17 07:26 General appearance: Present: A&O X 3, pleasant, no acute distress, answers questions appropriately - Head Head exam: Present: atraumatic - Eye Eye exam: Present: EOMI, PERRL Pupils: Present: normal accommodation, PERRL - Neck Neck exam general surgery: Present: full ROM, supple. Absent: tenderness, nuchal rigidity - Respiratory Respiratory exam: Present: CTAB. Absent: prolonged expiratory phase, rales, respiratory distress, rhonchi, stridor, wheezes, tachypnea - Cardiovascular Cardiovascular exam: Present: +S1, +S2. Absent: gallop, irregular rhythm, JVD, tachycardia - GI/Abdominal GI/Abdominal exam: Present: normal bowel sounds, soft. Absent: distended, guarding, rebound, rigid, splenomegaly, tenderness - Extremities Exam Extremities exam: Absent: pedal edema, tenderness, warm - Neurological Exam Neurological exam: Present: alert, reflexes normal Additional comments: mild decrease in strength in left Arms and leg , leg stronger then arm 3/5 leg 4/5 No clear deviation of face noted mild towards left side mild deviation of tongue noted no dysarthia noted Internal Medicine: Result - Labs CBC & Chem 7: 12/08/17 05:45 12/08/17 05:45 - ABG Interpretation ABG results: PT/INR, D-dimer PT 11.7 Seconds (9.4-12.1) 11/30/17 04:55 Consult Discharge Plan - Plan Referrals: NONE,PCP [Primary Care Provider] -
[2017-12-12 04:40] LABS: Hematocrit 32.7 % (35.3-44.9); Hemoglobin 11.4 g/dL (11.5-15.4); Mean Corpuscular HGB Conc 34.9 g/dL (31.6-35.5); Mean Corpuscular Hemoglobin 30.7 pg (28.0-33.3); Mean Corpuscular Volume 88.1 fL (83.0-100.0); Mean Platelet Volume 8.2 fL (9.4-12.4); Platelet Count 363 K/mcL (140-400); Red Blood Count 3.71 M/mcL (3.82-4.97); Red Cell Distribution Width 12.1 % (11.5-14.5)
[2017-12-12 05:00] LABS: Alanine Aminotransferase 57 Units/L (7-52); Albumin/Globulin Ratio 1.3 (1.1-2.2); Alkaline Phosphatase 105 Units/L (34-104); Aspartate Amino Transferase 34 Units/L (13-39); BUN/Creatinine Ratio 23 (6-26); Bilirubin,Total 0.5 mg/dL (0.3-1.0); Blood Urea Nitrogen 15 mg/dL (8-23); Calcium 9.5 mg/dL (8.6-10.3); Carbon Dioxide 28 mEq/L (23-29); Chloride 96 mEq/L (98-107); Glucose 173 mg/dL (70-105); Magnesium 2.1 mg/dL (1.6-2.6); Osmolality,Calculated 277 (280-300); Potassium 3.5 mEq/L (3.5-5.1); Sodium 131 mEq/L (136-145); eGFR For Non-African Americans > 60 (> 60)
[2017-12-12] MEDS: *HR* Enoxaparin 40 MG/0.4 ML SYRINGE SQ SCH (06:37)
[2017-12-12] MEDS: Aspirin Enteric Coated 81 MG Tablet PO SCH (08:45)
[2017-12-12] MEDS: amLODIPine 5 MG TABLET PO SCH (08:46)
[2017-12-12] MEDS: Fenofibrate 54 MG TABLET PO SCH (08:46)
[2017-12-12] MEDS: hydroCHLOROthiazide 25 MG TABLET PO SCH (08:46)
--- NOTE | 2017-12-12 08:50 | Internal Med Progress Note ---
Date of Encounter: 12/12/17 Time of Encounter: 08:48 - Assessment and plan (1) Cerebrovascular accident Current Visit: Yes Status: Acute Assessment and plan: stable s/p CVA slowly improving main deficit is in her left arm and strength able to swallow at her won speech is clear continue present treatment. Pt is ambulatory now and doesn't require to have DVT prevention since she spends most of her time in rehab and doing exercises Qualifiers: CVA mechanism: unspecified Qualified Code(s): I63.9 - Cerebral infarction, unspecified (2) Hypertension Current Visit: Yes Status: Chronic Assessment and plan: Stable no new change might hold her HTCZ due to low sodium and adjust her Norvasc if needed (3) Hyponatremia Current Visit: Yes Status: Acute Assessment and plan: She is HTC hold and follow adjust HTN meds if needed - Subjective Interval history: seen as cross coverage no acute issues getting her rehab Good sleep pain is ell controlled no fever or chills - Constitutional Vitals: Temp Pulse Resp BP Pulse Ox 98.3 F 86 16 135/72 96 12/11/17 19:17 12/11/17 19:17 12/11/17 19:17 12/11/17 19:17 12/11/17 07:26 General appearance: Present: A&O X 3, pleasant, no acute distress, answers questions appropriately - Head Head exam: Present: atraumatic - Eye Eye exam: Present: EOMI, PERRL Pupils: Present: PERRL Additional comments: no deviation noted - Neck Neck exam general surgery: Present: full ROM - Respiratory Respiratory exam: Present: CTAB. Absent: rales, respiratory distress, rhonchi, stridor, wheezes, tachypnea - Cardiovascular Cardiovascular exam: Present: RRR, +S1, +S2. Absent: gallop, irregular rhythm, JVD, tachycardia - GI/Abdominal GI/Abdominal exam: Present: normal bowel sounds, soft. Absent: distended, guarding, rigid - Extremities Exam Extremities exam: Present: pedal edema Additional comments: minimal both sides noted today - Neurological Exam Neurological exam: Present: CN II-XII intact, oriented X3. Absent: facial droop, speech deficit Additional comments: weakness 3/5 left manager emergency department and arm , leg 4/5 right side 5/5 minimal deviation tongue towards left side no dysarthia Internal Medicine: Result - Labs CBC & Chem 7: 12/12/17 04:31 12/12/17 04:31 Labs: Short CBC 12/12/17 Range/Units 04:31 WBC 6.3 (4.3-11.1) K/mcL Hgb 11.4 L (11.5-15.4) g/dL Hct 32.7 L (35.3-44.9) % Plt Count 363 (140-400) K/mcL BMP 12/12/17 04:31 Sodium 131 L Potassium 3.5 Chloride 96 L Carbon Dioxide 28 BUN 15 Creatinine 0.65 Glucose 173 H Calcium 9.5 Liver Function 12/12/17 Range/Units 04:31 Total Bilirubin 0.5 (0.3-1.0) mg/dL AST 34 (13-39) Units/L ALT 57 H (7-52) Units/L Alkaline Phosphatase 105 H (34-104) Units/L Albumin 4.0 (3.5-5.7) g/dL - ABG Interpretation ABG results: PT/INR, D-dimer PT 11.7 Seconds (9.4-12.1) 11/30/17 04:55 Consult Discharge Plan - Plan Referrals: NONE,PCP [Primary Care Provider] -
--- NOTE | 2017-12-12 10:00 | Internal Med Progress Note ---
Date of Encounter: 12/12/17 Time of Encounter: 09:51 - Assessment and plan (1) Cerebrovascular accident Current Visit: Yes Status: Acute Assessment and plan: No acute issues. Patient continues to have improving movement on right upper extremity. Patient states that she has noted increased movement on right hand with continues to have a 3+/5 muscle strength on grasp. Patient continues to progress well with physical therapy and was observed ambulating with wheeled walker.. Denies any acute neurological deficits. We will continue with current plan of care. We will continue with current medications Qualifiers: CVA mechanism: unspecified Qualified Code(s): I63.9 - Cerebral infarction, unspecified (2) Hypertension Current Visit: Yes Status: Chronic Assessment and plan: Vital signs have remained stable. We will continue with current medications. Qualifiers: Qualified Code(s): I10 - Essential (primary) hypertension - Time Spent With Patient less than 15 minutes - Subjective Interval history: Patient appears relaxed and currently denies any discomforts or shortness of breath. Patient states her strength continues to improve. - Constitutional Vitals: Temp Pulse Resp BP Pulse Ox 98.7 F 90 16 134/76 97 12/12/17 08:35 12/12/17 08:35 12/12/17 08:35 12/12/17 08:35 12/12/17 08:35 General appearance: Present: A&O X 3, pleasant, no acute distress, answers questions appropriately - Head Head exam: Present: atraumatic, normocephalic - Eye Eye exam: Present: PERRL, conjuntiva pink, sclera anicteric Pupils: Present: PERRL - Neck Neck exam general surgery: Present: supple, trachea midline. Absent: lymphadenopathy - Respiratory Respiratory exam: Present: CTAB. Absent: accessory muscle use, rales, rhonchi, wheezes - Cardiovascular Cardiovascular exam: Present: RRR, +S1, +S2. Absent: diastolic murmur, gallop, rubs, systolic murmur - GI/Abdominal GI/Abdominal exam: Present: normal bowel sounds, soft, no peritoneal signs. Absent: distended, tenderness - Extremities Exam Extremities exam: Present: warm, radial pulses palpable and symmetrical. Absent: calf tenderness, cyanotic, pedal edema - Neurological Exam Neurological exam: Present: CN II-XII intact, oriented X3, no focal deficits. Absent: pronater drift, facial droop, speech deficit - Skin Skin exam: Present: dry, intact Internal Medicine: Result - Labs CBC & Chem 7: 12/12/17 04:31 12/12/17 04:31 Labs: Short CBC 12/12/17 Range/Units 04:31 WBC 6.3 (4.3-11.1) K/mcL Hgb 11.4 L (11.5-15.4) g/dL Hct 32.7 L (35.3-44.9) % Plt Count 363 (140-400) K/mcL BMP 12/12/17 04:31 Sodium 131 L Potassium 3.5 Chloride 96 L Carbon Dioxide 28 BUN 15 Creatinine 0.65 Glucose 173 H Calcium 9.5 Liver Function 12/12/17 Range/Units 04:31 Total Bilirubin 0.5 (0.3-1.0) mg/dL AST 34 (13-39) Units/L ALT 57 H (7-52) Units/L Alkaline Phosphatase 105 H (34-104) Units/L Albumin 4.0 (3.5-5.7) g/dL - ABG Interpretation ABG results: PT/INR, D-dimer PT 11.7 Seconds (9.4-12.1) 11/30/17 04:55 Consult Discharge Plan - Plan Referrals: NONE,PCP [Primary Care Provider] -
[2017-12-13 06:10] LABS: BUN/Creatinine Ratio 27 (6-26); Blood Urea Nitrogen 18 mg/dL (8-23); Calcium 9.6 mg/dL (8.6-10.3); Carbon Dioxide 27 mEq/L (23-29); Chloride 96 mEq/L (98-107); Glucose 156 mg/dL (70-105); Osmolality,Calculated 277 (280-300); Potassium 3.6 mEq/L (3.5-5.1); Sodium 131 mEq/L (136-145); eGFR For Non-African Americans > 60 (> 60)
[2017-12-13] MEDS: Sennosides/Docusate Sodium TABLET PO PRN (08:32)
[2017-12-13] MEDS: Fenofibrate 54 MG TABLET PO SCH (08:32)
[2017-12-13] MEDS: amLODIPine 5 MG TABLET PO SCH (08:32)
[2017-12-13] MEDS: Aspirin Enteric Coated 81 MG Tablet PO SCH (08:33)
--- NOTE | 2017-12-13 08:47 | Internal Med Progress Note ---
Date of Encounter: 12/13/17 Time of Encounter: 08:45 - Assessment and plan (1) Cerebrovascular accident Current Visit: Yes Status: Acute Assessment and plan: stable and improving slowly tolerating her rehab well Qualifiers: CVA mechanism: unspecified Qualified Code(s): I63.9 - Cerebral infarction, unspecified (2) Hypertension Current Visit: Yes Status: Chronic Assessment and plan: stable continue present adjustments (3) Hyponatremia Current Visit: Yes Status: Acute Assessment and plan: HTCZ was held however she received morning dose will followup labs - Subjective Interval history: seen as cross coverage no acute issues getting her rehab No new issues eating and toleating her rehab quite well no dizziness. HTCZ was already given yesterday so we should expect some change in sodium tomorrow - Constitutional Vitals: Temp Pulse Resp BP Pulse Ox 97.6 F 77 16 134/72 97 12/13/17 07:09 12/13/17 07:09 12/13/17 07:09 12/13/17 07:09 12/13/17 07:09 General appearance: Present: A&O X 3, pleasant, no acute distress, answers questions appropriately - Head Head exam: Present: atraumatic - Eye Eye exam: Present: EOMI, PERRL. Absent: scleral icterus Pupils: Present: PERRL - Neck Neck exam general surgery: Present: full ROM, supple. Absent: tenderness, nuchal rigidity - Respiratory Respiratory exam: Present: CTAB. Absent: respiratory distress, rhonchi, stridor - Cardiovascular Cardiovascular exam: Present: RRR, +S1, +S2. Absent: irregular rhythm, JVD, tachycardia - GI/Abdominal GI/Abdominal exam: Present: normal bowel sounds, soft. Absent: distended, firm, guarding, rigid - Extremities Exam Extremities exam: Absent: pedal edema, tenderness - Neurological Exam Neurological exam: Present: CN II-XII intact, oriented X3. Absent: facial droop, speech deficit Additional comments: weakness 3/5 left arm , leg 4/5 right side normal no other deficit . Internal Medicine: Result - Labs CBC & Chem 7: 12/12/17 04:31 12/13/17 05:25 Labs: BMP 12/13/17 05:25 Sodium 131 L Potassium 3.6 Chloride 96 L Carbon Dioxide 27 BUN 18 Creatinine 0.67 Glucose 156 H Calcium 9.6 - ABG Interpretation ABG results: PT/INR, D-dimer PT 11.7 Seconds (9.4-12.1) 11/30/17 04:55 Consult Discharge Plan - Plan Referrals: NONE,PCP [Primary Care Provider] -
[2017-12-14 05:14] LABS: BUN/Creatinine Ratio 31 (6-26); Blood Urea Nitrogen 21 mg/dL (8-23); Calcium 9.3 mg/dL (8.6-10.3); Carbon Dioxide 25 mEq/L (23-29); Chloride 98 mEq/L (98-107); Glucose 169 mg/dL (70-105); Osmolality,Calculated 279 (280-300); Potassium 3.6 mEq/L (3.5-5.1); Sodium 131 mEq/L (136-145); eGFR For Non-African Americans > 60 (> 60)
--- NOTE | 2017-12-14 07:55 | Internal Med Progress Note ---
Date of Encounter: 12/14/17 Time of Encounter: 07:53 - Assessment and plan (1) Cerebrovascular accident Current Visit: Yes Status: Acute Assessment and plan: stable no new change continue rehab Qualifiers: CVA mechanism: unspecified Qualified Code(s): I63.9 - Cerebral infarction, unspecified (2) Hypertension Current Visit: Yes Status: Chronic Assessment and plan: Noted slightly high today HTCZ at hold . Add small dose Lisinopril and followup (3) Hyponatremia Current Visit: Yes Status: Acute Assessment and plan: Sodium no change real impact will be seen in few days as today would be the frst day of being off HTCZ - Subjective Interval history: seen as cross coverage no acute issues getting her rehab No new issues eating and tolerating her rehab quite well no dizziness. BP slightly high today - Constitutional Vitals: Temp Pulse Resp BP Pulse Ox 98.6 F 93 18 148/94 94 12/14/17 07:44 12/14/17 07:44 12/14/17 07:44 12/14/17 07:44 12/14/17 07:44 General appearance: Present: A&O X 3, pleasant, no acute distress, answers questions appropriately - Head Head exam: Present: atraumatic - Eye Eye exam: Present: EOMI, PERRL Pupils: Present: PERRL - Neck Neck exam general surgery: Present: full ROM, supple. Absent: tenderness, nuchal rigidity - Respiratory Respiratory exam: Present: CTAB. Absent: chest wall tenderness, respiratory distress, rhonchi, stridor, wheezes, tachypnea - Cardiovascular Cardiovascular exam: Present: RRR, +S1, +S2. Absent: irregular rhythm, JVD - GI/Abdominal GI/Abdominal exam: Present: normal bowel sounds, soft. Absent: distended, guarding, rebound, rigid - Extremities Exam Extremities exam: Absent: pedal edema, tenderness - Neurological Exam Neurological exam: Present: CN II-XII intact, oriented X3. Absent: facial droop, speech deficit Additional comments: weakness as before no new change noted today improving slowly Internal Medicine: Result - Labs CBC & Chem 7: 12/12/17 04:31 12/14/17 04:49 Labs: BMP 12/14/17 04:49 Sodium 131 L Potassium 3.6 Chloride 98 Carbon Dioxide 25 BUN 21 Creatinine 0.67 Glucose 169 H Calcium 9.3 - ABG Interpretation ABG results: PT/INR, D-dimer PT 11.7 Seconds (9.4-12.1) 11/30/17 04:55 Consult Discharge Plan - Plan Referrals: NONE,PCP [Primary Care Provider] -
[2017-12-14] MEDS: amLODIPine 5 MG TABLET PO SCH (08:57)
[2017-12-14] MEDS: Fenofibrate 54 MG TABLET PO SCH (08:57)
[2017-12-14] MEDS: Aspirin Enteric Coated 81 MG Tablet PO SCH (08:57)
[2017-12-14] MEDS: Sennosides/Docusate Sodium TABLET PO PRN (19:16)
[2017-12-15 05:34] LABS: Basophils # 0.1 K/mcL (0.0-0.2); Eosinophils # 0.3 K/mcL (0.0-0.6); Eosinophils % 4.2 %; Hematocrit 33.5 % (35.3-44.9); Hemoglobin 11.7 g/dL (11.5-15.4); Immature Granulocytes % 0.4 % (0-4); Lymphocytes # 1.9 K/mcL (0.6-4.6); Lymphocytes % 28.3 %; Mean Corpuscular HGB Conc 34.9 g/dL (31.6-35.5); Mean Corpuscular Hemoglobin 30.9 pg (28.0-33.3); Mean Corpuscular Volume 88.4 fL (83.0-100.0); Mean Platelet Volume 8.5 fL (9.4-12.4); Monocytes # 0.7 K/mcL (0.0-1.3); Monocytes % 10.8 %; Neutrophils # 3.8 K/mcL (1.6-8.9); Platelet Count 410 K/mcL (140-400); Red Blood Count 3.79 M/mcL (3.82-4.97); Red Cell Distribution Width 12.4 % (11.5-14.5); Segmented Neutrophils % 55.3 %
[2017-12-15 05:41] LABS: Prothrombin Time 11.7 Seconds (9.4-12.1)
[2017-12-15 05:54] LABS: BUN/Creatinine Ratio 28 (6-26); Blood Urea Nitrogen 18 mg/dL (8-23); Calcium 9.4 mg/dL (8.6-10.3); Carbon Dioxide 25 mEq/L (23-29); Chloride 102 mEq/L (98-107); Glucose 155 mg/dL (70-105); Osmolality,Calculated 285 (280-300); Potassium 3.8 mEq/L (3.5-5.1); Sodium 135 mEq/L (136-145); eGFR For Non-African Americans > 60 (> 60)
[2017-12-15] MEDS: amLODIPine 5 MG TABLET PO SCH (07:56)
[2017-12-15] MEDS: Fenofibrate 54 MG TABLET PO SCH (07:56)
[2017-12-15] MEDS: Aspirin Enteric Coated 81 MG Tablet PO SCH (07:59)
--- NOTE | 2017-12-15 10:53 | Internal Med Progress Note ---
Addendum entered and electronically signed by Renate Nelson 12/16/17 17:16: I have personally performed a face to face evaluation on this patient. I have re viewed and agree with the care plan. Pt has no new neurologic changes no head aches bp controlled participating well in therapy with r triny Original Note: Date of Encounter: 12/15/17 Time of Encounter: 10:51 - Assessment and plan (1) Cerebrovascular accident Current Visit: Yes Status: Acute Assessment and plan: Improving. PT and OT and speech therapy to eval and treat. will follow progress. no new neurological deficits. f/u with neurologist as scheduled. Qualifiers: CVA mechanism: unspecified Qualified Code(s): I63.9 - Cerebral infarction, unspecified (2) DVT prophylaxis Current Visit: Yes Status: Acute Assessment and plan: continue Lovenox. (3) Hypertension Current Visit: Yes Status: Chronic Assessment and plan: controlled with current meds. monitor BP. Qualifiers: Hypertension type: essential hypertension Qualified Code(s): I10 - Essential (primary) hypertension (4) Mixed hyperlipidemia Current Visit: Yes Status: Acute Assessment and plan: continue Lipitor. - Time Spent With Patient less than 15 minutes - Subjective Interval history: Participating well with therapy. Using marisabel Walker to ambulate to bathroom. Standby assist. Last bowel movement was this morning. Denies any pain or complaints at this time. No new neurological deficits. Maintaining appetite and hydration. wearing brace to right foot. able to make slight fist with right hand. - Constitutional Vitals: Temp Pulse Resp BP Pulse Ox 98.1 F 73 16 120/69 98 12/15/17 07:20 12/15/17 07:20 12/15/17 07:20 12/15/17 07:20 12/15/17 07:20 General appearance: Present: A&O X 3, pleasant, no acute distress, answers questions appropriately - Head Head exam: Present: atraumatic, normocephalic - Eye Eye exam: Present: PERRL, conjuntiva pink, sclera anicteric Pupils: Present: PERRL - Neck Neck exam general surgery: Present: supple, trachea midline. Absent: lymphadenopathy - Respiratory Respiratory exam: Present: CTAB. Absent: accessory muscle use, rales, rhonchi, wheezes - Cardiovascular Cardiovascular exam: Present: RRR, +S1, +S2. Absent: diastolic murmur, gallop, rubs, systolic murmur - GI/Abdominal GI/Abdominal exam: Present: normal bowel sounds, soft, no peritoneal signs. Absent: distended, tenderness - Extremities Exam Extremities exam: Present: warm, radial pulses palpable and symmetrical. Absent: calf tenderness, cyanotic, pedal edema Additional comments: Strength 3\5 right upper and right lower extremities - Neurological Exam Neurological exam: Present: CN II-XII intact, oriented X3, no focal deficits. Absent: pronater drift, facial droop, speech deficit - Skin Skin exam: Present: dry, intact Internal Medicine: Result - Labs CBC & Chem 7: 12/15/17 05:00 12/15/17 05:00 Labs: Short CBC 12/15/17 Range/Units 05:00 WBC 6.9 (4.3-11.1) K/mcL Hgb 11.7 (11.5-15.4) g/dL Hct 33.5 L (35.3-44.9) % Plt Count 410 H (140-400) K/mcL Neutrophils # 3.8 (1.6-8.9) K/mcL BMP 12/15/17 05:00 Sodium 135 L Potassium 3.8 Chloride 102 Carbon Dioxide 25 BUN 18 Creatinine 0.65 Glucose 155 H Calcium 9.4 - ABG Interpretation ABG results: PT/INR, D-dimer PT 11.7 Seconds (9.4-12.1) 12/15/17 05:00 Consult Discharge Plan - Plan Referrals: NONE,PCP [Primary Care Provider] -
[2017-12-16] MEDS: Aspirin Enteric Coated 81 MG Tablet PO SCH (08:38)
[2017-12-16] MEDS: amLODIPine 5 MG TABLET PO SCH (08:38)
[2017-12-16] MEDS: Fenofibrate 54 MG TABLET PO SCH (08:39)
--- NOTE | 2017-12-16 09:46 | Internal Med Progress Note ---
Addendum entered and electronically signed by Renate Nelson 12/16/17 17:17: I have personally performed a face to face evaluation on this patient. I have reviewed and agree with the care plan. Pt post CVA Pt has no new neurologic changes no head aches bp controlled participating well in therapy with carlos agosto Original Note: Date of Encounter: 12/16/17 Time of Encounter: 09:43 - Assessment and plan (1) Cerebrovascular accident Current Visit: Yes Status: Acute Assessment and plan: Patient continues to have increased motor strength on right extremities over the past week showing an increase strength in hand grasp, although she still remains at 3+/5 muscle strength. Noted continued fine motor deficit on right hand. Left extremity remains at 5/5 muscle strength. Patient continues to progress well with physical therapy. Denies any discomforts or shortness of breath. We will continue with current plan of care Qualifiers: CVA mechanism: unspecified Qualified Code(s): I63.9 - Cerebral infarction, unspecified (2) Hypertension Current Visit: Yes Status: Chronic Assessment and plan: Vital signs have remained stable during her stay at this facility. We will continue with current medications Qualifiers: Hypertension type: essential hypertension Qualified Code(s): I10 - Essential (primary) hypertension - Time Spent With Patient less than 15 minutes - Subjective Interval history: Patient appears relaxed and currently denies any discomforts or shortness of breath. Patient continues to increase her strength to her right extremities, demonstrating her increased grasp with her right hand during occupational therapy. Patient states that physical therapy is progressing well. - Constitutional Vitals: Temp Pulse Resp BP Pulse Ox 97.8 F 68 16 118/68 97 12/16/17 06:40 12/16/17 06:40 12/16/17 06:40 12/16/17 06:40 12/16/17 06:40 General appearance: Present: A&O X 3, pleasant, no acute distress, answers questions appropriately - Head Head exam: Present: atraumatic, normocephalic - Eye Eye exam: Present: PERRL, conjuntiva pink, sclera anicteric Pupils: Present: PERRL - Neck Neck exam general surgery: Present: supple, trachea midline. Absent: lymphadenopathy - Respiratory Respiratory exam: Present: CTAB. Absent: accessory muscle use, rales, rhonchi, wheezes - Cardiovascular Cardiovascular exam: Present: RRR, +S1, +S2. Absent: diastolic murmur, gallop, rubs, systolic murmur - GI/Abdominal GI/Abdominal exam: Present: normal bowel sounds, soft, no peritoneal signs. Absent: distended, tenderness - Extremities Exam Extremities exam: Present: warm, radial pulses palpable and symmetrical. Absent: calf tenderness, cyanotic, pedal edema - Neurological Exam Neurological exam: Present: CN II-XII intact, oriented X3. Absent: pronater drift, facial droop, speech deficit Additional comments: Patient continues to have right hemiparesis with muscle strength on the right extremities at 4/5. Continued difficulty with right hand grasp which is at 3+/5 in noted difficulty with fine motor function. Left extremities at 5/5 - Skin Skin exam: Present: dry, intact Internal Medicine: Result - Labs CBC & Chem 7: 12/15/17 05:00 12/15/17 05:00 - ABG Interpretation ABG results: PT/INR, D-dimer PT 11.7 Seconds (9.4-12.1) 12/15/17 05:00 Consult Discharge Plan - Plan Referrals: NONE,PCP [Primary Care Provider] -
[2017-12-17] MEDS: Acetaminophen 325 MG TABLET PO PRN (02:24)
[2017-12-17] MEDS: Fenofibrate 54 MG TABLET PO SCH (08:13)
[2017-12-17] MEDS: amLODIPine 5 MG TABLET PO SCH (08:13)
[2017-12-17] MEDS: Aspirin Enteric Coated 81 MG Tablet PO SCH (08:50)
--- NOTE | 2017-12-17 09:44 | Internal Med Progress Note ---
Date of Encounter: 12/17/17 Time of Encounter: 09:42 - Assessment and plan (1) Cerebrovascular accident Current Visit: Yes Status: Acute Assessment and plan: Patient continues to have increased motor strength over the past week on right extremities showing an increase strength in hand grasp, although she still remains at 3+/5 muscle strength. Noted continued fine motor deficit on right hand. Left extremity remains at 5/5 muscle strength. Patient continues to state that she has shown progress well with physical therapy. Denies any discomforts or shortness of breath. We will continue with current plan of care Qualifiers: CVA mechanism: unspecified Qualified Code(s): I63.9 - Cerebral infarction, unspecified (2) Hypertension Current Visit: Yes Status: Chronic Assessment and plan: Vital signs have remained stable during her stay at this facility. We will continue with current medications Qualifiers: Hypertension type: essential hypertension Qualified Code(s): I10 - Essential (primary) hypertension - Time Spent With Patient less than 15 minutes - Subjective Interval history: Patient appears relaxed and currently denies any discomforts or shortness of breath. Patient continues to increase her strength to her right extremities, de monstrating her increased grasp with her right hand during occupational therapy. Patient states that physical therapy is progressing well. - Constitutional Vitals: Temp Pulse Resp BP Pulse Ox 98.1 F 98 16 136/66 98 12/17/17 07:00 12/17/17 07:00 12/17/17 07:00 12/17/17 07:00 12/17/17 07:00 General appearance: Present: A&O X 3, pleasant, no acute distress, answers questions appropriately - Head Head exam: Present: atraumatic, normocephalic - Eye Eye exam: Present: PERRL, conjuntiva pink, sclera anicteric Pupils: Present: PERRL - Neck Neck exam general surgery: Present: supple, trachea midline. Absent: lymphadenopathy - Respiratory Respiratory exam: Present: CTAB. Absent: accessory muscle use, rales, rhonchi, wheezes - Cardiovascular Cardiovascular exam: Present: RRR, +S1, +S2. Absent: diastolic murmur, gallop, rubs, systolic murmur - GI/Abdominal GI/Abdominal exam: Present: normal bowel sounds, soft, no peritoneal signs. Absent: distended, tenderness - Extremities Exam Extremities exam: Present: warm, radial pulses palpable and symmetrical. Absent: calf tenderness, cyanotic, pedal edema - Neurological Exam Neurological exam: Present: CN II-XII intact, oriented X3. Absent: pronater drift, facial droop, speech deficit Additional comments: Patient continues to show right hemiparesis with right extremity shown 4/5 muscle strength. Patient's right hand grasp does remain at 3+/5 muscle strength with patient continued to show poor fine motor ability. Patient to show right dorsiflexion of 3+/5. Left extremities are 5/5 MS. No other focal deficits noted. - Skin Skin exam: Present: dry, intact Internal Medicine: Result - Labs CBC & Chem 7: 12/15/17 05:00 12/15/17 05:00 - ABG Interpretation ABG results: PT/INR, D-dimer PT 11.7 Seconds (9.4-12.1) 12/15/17 05:00 Consult Discharge Plan - Plan Referrals: NONE,PCP [Primary Care Provider] -
[2017-12-18] MEDS: Fenofibrate 54 MG TABLET PO SCH (08:02)
[2017-12-18] MEDS: Aspirin Enteric Coated 81 MG Tablet PO SCH (08:02)
[2017-12-18] MEDS: amLODIPine 5 MG TABLET PO SCH (08:02)
--- NOTE | 2017-12-18 14:19 | Internal Med Progress Note ---
Date of Encounter: 12/18/17 Time of Encounter: 14:16 - Assessment and plan (1) Cerebrovascular accident Current Visit: Yes Status: Acute Assessment and plan: Patient continues to have increased motor strength over the past week on right extremities showing an increase strength in hand grasp, although she still remains at 3+/5 muscle strength. Noted continued fine motor deficit on right hand. Left extremity remains at 5/5 muscle strength. Patient continues to state that she has shown progress well with physical therapy. Denies any discomforts or shortness of breath. We will continue with current plan of care Qualifiers: CVA mechanism: unspecified Qualified Code(s): I63.9 - Cerebral infarction, unspecified (2) Hypertension Current Visit: Yes Status: Chronic Assessment and plan: Vital signs have remained stable during her stay at this facility. We will continue with current medications Qualifiers: Hypertension type: essential hypertension Qualified Code(s): I10 - Essential (primary) hypertension - Time Spent With Patient less than 15 minutes - Subjective Interval history: Patient appears relaxed and currently denies any discomforts or shortness of breath. Patient continues to increase her strength to her right extremities, de monstrating her increased grasp with her right hand during occupational therapy. Patient states that physical therapy is progressing well. - Constitutional Vitals: Temp Pulse Resp BP Pulse Ox 97.6 F 76 16 150/74 98 12/18/17 08:00 12/18/17 08:00 12/18/17 08:00 12/18/17 08:00 12/18/17 08:00 General appearance: Present: A&O X 3, pleasant, no acute distress, answers questions appropriately - Head Head exam: Present: atraumatic, normocephalic - Eye Eye exam: Present: PERRL, conjuntiva pink, sclera anicteric Pupils: Present: PERRL - Neck Neck exam general surgery: Present: supple, trachea midline. Absent: lymphadenopathy - Respiratory Respiratory exam: Present: CTAB. Absent: accessory muscle use, rales, rhonchi, wheezes - Cardiovascular Cardiovascular exam: Present: RRR, +S1, +S2. Absent: diastolic murmur, gallop, rubs, systolic murmur - GI/Abdominal GI/Abdominal exam: Present: normal bowel sounds, soft, no peritoneal signs. Absent: distended, tenderness - Extremities Exam Extremities exam: Present: warm, radial pulses palpable and symmetrical. Absent: calf tenderness, cyanotic, pedal edema - Neurological Exam Neurological exam: Present: CN II-XII intact, oriented X3. Absent: pronater drift, facial droop, speech deficit Additional comments: Patient continues to have right hemiparesis with right upper extremity and 4/5 muscle strength and right hand grasp and 3+/5 muscle strength. Right leg is 4/5 muscle strength. Left extremities are 5/5. No other focal deficits noted on exam - Skin Skin exam: Present: dry, intact Internal Medicine: Result - Labs CBC & Chem 7: 12/15/17 05:00 12/15/17 05:00 - ABG Interpretation ABG results: PT/INR, D-dimer PT 11.7 Seconds (9.4-12.1) 12/15/17 05:00 Consult Discharge Plan - Plan Referrals: NONE,PCP [Primary Care Provider] -
[2017-12-19] MEDS: Aspirin Enteric Coated 81 MG Tablet PO SCH (08:06)
[2017-12-19] MEDS: Fenofibrate 54 MG TABLET PO SCH (08:07)
[2017-12-19] MEDS: amLODIPine 5 MG TABLET PO SCH (08:07)
--- NOTE | 2017-12-19 12:22 | Event Note ---
Date of Encounter: 12/19/17 Time of Encounter: 12:21 Patient currently is not seeing today on rounding due to being UNIT. Patient had an overnight stay at home with 24-hour home evaluation and has not returned to facility.
[2017-12-20] MEDS: amLODIPine 5 MG TABLET PO SCH (08:24)
[2017-12-20] MEDS: Aspirin Enteric Coated 81 MG Tablet PO SCH (08:24)
[2017-12-20] MEDS: Fenofibrate 54 MG TABLET PO SCH (08:24)
--- NOTE | 2017-12-20 18:47 | Internal Med Progress Note ---
Date of Encounter: 12/20/17 Time of Encounter: 18:00 - Subjective Interval history: - Assessment and plan (1) Cerebrovascular accident Current Visit: Yes Status: Acute Assessment and plan: Patient continues to have increased motor strength over the past week on right extremities showing an increase strength in hand grasp, improving muscle strength. Noted continued fine motor deficit on right hand. Left extremity remains at 5/5 muscle strength. Patient continues to state that she is happy with progress well with physical therapy eating well . no head ache. BP stable Denies any discomforts or shortness of breath. We will continue with current plan of care for treatment. Qualifiers: CVA mechanism: unspecified Qualified Code(s): I63.9 - Cerebral infarction, unspecified (2) Hypertension Current Visit: Yes Status: Chronic Assessment and plan: Vital signs have remained stable during her stay at this facility. We will continue with current medications Qualifiers: Hypertension type: essential hypertension Qualified Code(s): I10 - Essential (primary) hypertension - Time Spent With Patient less than 15 minutes - Subjective Interval history: Patient appears relaxed and currently denies any discomforts or shortness of breath She is looking forward to completing therapy. Family is supportive. . Patient continues to increase her strength to her right extremities, demonstrating her increased grasp with her right hand during occupational therapy. Patient states that physical therapy is progressing well. - Constitutional Vitals: Temp Pulse Resp BP Pulse Ox 97.6 F 76 16 150/74 98 12/18/17 08:00 12/18/17 08:00 12/18/17 08:00 12/18/17 08:00 12/18/17 08:00 General appearance: Present: A&O X 3, pleasant, no acute distress, answers questions appropriately - Head Head exam: Present: atraumatic, normocephalic - Eye Eye exam: Present: PERRL, conjuntiva pink, sclera anicteric Pupils: Present: PERRL - Neck Neck exam general surgery: Present: supple, trachea midline. Absent: lymphadenopathy - Respiratory Respiratory exam: Present: CTAB. Absent: accessory muscle use, rales, rhonchi, wheezes - Cardiovascular Cardiovascular exam: Present: RRR, +S1, +S2. Absent: diastolic murmur, gallop, rubs, systolic murmur - GI/Abdominal GI/Abdominal exam: Present: normal bowel sounds, soft, no peritoneal signs. Absent: distended, tenderness - Extremities Exam Extremities exam: Present: warm, radial pulses palpable and symmetrical. Absent: calf tenderness, cyanotic, pedal edema - Neurological Exam Neurological exam: Present: CN II-XII intact, oriented X3. Absent: pronater drift, facial droop, speech deficit Additional comments: Patient continues to have right hemiparesis with right upper extremity and 4/5 muscle strength and right hand grasp and 3+/5 muscle strength. Right leg is 4/5 muscle strength. Left extremities are 5/5. No other focal deficits noted on exam - Skin Skin exam: Present: dry, intact - Constitutional Vitals: Temp Pulse Resp BP Pulse Ox 97.9 F 70 16 157/63 95 12/20/17 07:39 12/20/17 07:39 12/20/17 07:39 12/20/17 07:39 12/20/17 07:39 General appearance: Present: A&O X 3, pleasant, no acute distress, answers questions appropriately Internal Medicine: Result - Labs CBC & Chem 7: 12/15/17 05:00 12/15/17 05:00 - ABG Interpretation ABG results: PT/INR, D-dimer PT 11.7 Seconds (9.4-12.1) 12/15/17 05:00 Consult Discharge Plan - Plan Referrals: NONE,PCP [Primary Care Provider] -
[2017-12-21] MEDS: Aspirin Enteric Coated 81 MG Tablet PO SCH (08:17)
[2017-12-21] MEDS: Fenofibrate 54 MG TABLET PO SCH (08:17)
[2017-12-21] MEDS: amLODIPine 5 MG TABLET PO SCH (08:17)
--- NOTE | 2017-12-21 15:18 | Internal Med Progress Note ---
Date of Encounter: 12/21/17 Time of Encounter: 16:10 - Subjective Interval history: - Assessment and plan (1) Cerebrovascular accident Current Visit: Yes Status: Acute Assessment and plan: Patient continues to have increased motor strength over the past week on right extremities showing an increase strength in hand grasp, improving muscle strength. Noted continued fine motor deficit on right hand. Left extremity remains at 5/5 muscle strength. Patient continues to state that she is happy with progress well with physical therapy eating well . no head ache. BP stable Denies any discomforts or shortness of breath. We will continue with current plan of care for treatment. Qualifiers: CVA mechanism: unspecified Qualified Code(s): I63.9 - Cerebral infarction, unspecified (2) Hypertension Current Visit: Yes Status: Chronic Assessment and plan: Vital signs have remained stable during her stay at this facility. We will continue with current medications Qualifiers: Hypertension type: essential hypertension Qualified Code(s): I10 - Essential (primary) hypertension - Time Spent With Patient less than 15 minutes - Subjective Interval history: Patient appears relaxed and currently denies any discomforts or shortness of breath She says she usually likes to stay healthy and was walking hour a day prior to stroke, eating well She says sh has severe snoring symptoms and that her has to wake her up due to this advised pt about possible GIORGI and risk increase of stroke advised pt she will need get sleep studay from her pmd and follow up if has giorgi. She voices understanding and agrees to do so. Her [birth year] is and she wants to be home for her birthday She is looking forward to completing therapy. Family is supportive. . Patient continues to increase her strength to her right extremities, demonstrating her increased grasp with her right hand during occupational therapy. Patient states that physical therapy is progressing well. - Constitutional Vitals: Temp Pulse Resp BP Pulse Ox 97.6 F 76 16 150/74 98 12/18/17 08:00 12/18/17 08:00 12/18/17 08:00 12/18/17 08:00 12/18/17 08:00 General appearance: Present: A&O X 3, pleasant, no acute distress, answers questions appropriately - Head Head exam: Present: atraumatic, normocephalic - Eye Eye exam: Present: PERRL, conjuntiva pink, sclera anicteric Pupils: Present: PERRL - Neck Neck exam general surgery: Present: supple, trachea midline. Absent: lymphadenopathy - Respiratory Respiratory exam: Present: CTAB. Absent: accessory muscle use, rales, rhonchi, wheezes - Cardiovascular Cardiovascular exam: Present: RRR, +S1, +S2. Absent: diastolic murmur, gallop, rubs, systolic murmur - GI/Abdominal GI/Abdominal exam: Present: normal bowel sounds, soft, no peritoneal signs. Absent: distended, tenderness - Extremities Exam Extremities exam: Present: warm, radial pulses palpable and symmetrical. Absent: calf tenderness, cyanotic, pedal edema - Neurological Exam Neurological exam: Present: CN II-XII intact, oriented X3. Absent: pronater drift, facial droop, speech deficit Additional comments: Patient continues to have right hemiparesis with right upper extremity and 4/5 muscle strength and right hand grasp and 3+/5 muscle strength. Right leg is 4/5 muscle strength. Left extremities are 5/5. No other focal deficits noted on exam - Skin Skin exam: Present: dry, intact - Constitutional Vitals: Temp Pulse Resp BP Pulse Ox 98.1 F 75 16 125/69 98 12/21/17 06:00 12/21/17 06:00 12/21/17 06:00 12/21/17 06:00 12/21/17 06:00 General appearance: Present: A&O X 3, pleasant, no acute distress, answers questions appropriately Internal Medicine: Result - Labs CBC & Chem 7: 12/15/17 05:00 12/15/17 05:00 - ABG Interpretation ABG results: PT/INR, D-dimer PT 11.7 Seconds (9.4-12.1) 12/15/17 05:00 Consult Discharge Plan - Plan Referrals: NONE,PCP [Primary Care Provider] -
[2017-12-22 05:46] LABS: Basophils # 0.1 K/mcL (0.0-0.2); Eosinophils # 0.2 K/mcL (0.0-0.6); Hematocrit 33.8 % (35.3-44.9); Hemoglobin 11.6 g/dL (11.5-15.4); Immature Granulocytes % 0.2 % (0-4); Lymphocytes # 1.2 K/mcL (0.6-4.6); Lymphocytes % 20.1 %; Mean Corpuscular HGB Conc 34.3 g/dL (31.6-35.5); Mean Corpuscular Hemoglobin 30.1 pg (28.0-33.3); Mean Corpuscular Volume 87.6 fL (83.0-100.0); Mean Platelet Volume 8.4 fL (9.4-12.4); Monocytes # 0.6 K/mcL (0.0-1.3); Monocytes % 9.6 %; Neutrophils # 3.9 K/mcL (1.6-8.9); Platelet Count 399 K/mcL (140-400); Red Blood Count 3.86 M/mcL (3.82-4.97); Red Cell Distribution Width 12.3 % (11.5-14.5); Segmented Neutrophils % 66.1 %
[2017-12-22 05:48] LABS: INR 1.1; Prothrombin Time 12.3 Seconds (9.4-12.1)
[2017-12-22 06:00] LABS: BUN/Creatinine Ratio 20 (6-26); Blood Urea Nitrogen 13 mg/dL (8-23); Calcium 9.4 mg/dL (8.6-10.3); Carbon Dioxide 26 mEq/L (23-29); Chloride 99 mEq/L (98-107); Glucose 155 mg/dL (70-105); Osmolality,Calculated 279 (280-300); Potassium 3.6 mEq/L (3.5-5.1); Sodium 133 mEq/L (136-145); eGFR For Non-African Americans > 60 (> 60)
[2017-12-22] MEDS: Fenofibrate 54 MG TABLET PO SCH (07:55)
[2017-12-22] MEDS: amLODIPine 5 MG TABLET PO SCH (07:55)
[2017-12-22] MEDS: Aspirin Enteric Coated 81 MG Tablet PO SCH (07:55)
--- NOTE | 2017-12-22 10:49 | Internal Med Progress Note ---
Addendum entered and electronically signed by Renate Nelson 12/22/17 16:59: For this encounter, I have reviewed the [facility] documentation, treatment plan, and medical decision making; and I have had face to face time with this patient. Original Note: Date of Encounter: 12/22/17 Time of Encounter: 10:47 - Assessment and plan (1) Cerebrovascular accident Current Visit: Yes Status: Acute Assessment and plan: Improving. PT and OT and speech therapy to eval and treat. will follow progress. no new neurological deficits. f/u with neurologist as scheduled. Qualifiers: CVA mechanism: unspecified Qualified Code(s): I63.9 - Cerebral infarction, unspecified (2) Hypertension Current Visit: Yes Status: Chronic Assessment and plan: controlled with current meds. monitor BP. Qualifiers: Hypertension type: essential hypertension Qualified Code(s): I10 - Essential (primary) hypertension (3) Mixed hyperlipidemia Current Visit: Yes Status: Acute Assessment and plan: continue Lipitor. - Time Spent With Patient less than 15 minutes - Subjective Interval history: Participating well with therapy. Last bowel movement was this morning. Denies any pain or complaints at this time. No new neurological deficits. Maintaining appetite and hydration. wearing brace to right foot. able to make slight fist with right hand. Fine motor skills improving. - Constitutional Vitals: Temp Pulse Resp BP Pulse Ox 97.7 F 81 17 149/73 99 12/22/17 07:00 12/22/17 07:00 12/22/17 07:00 12/22/17 07:00 12/22/17 07:00 General appearance: Present: cooperative, A&O X 3, pleasant, no acute distress, answers questions appropriately - Head Head exam: Present: atraumatic, normocephalic - Eye Eye exam: Present: PERRL, conjuntiva pink, sclera anicteric Pupils: Present: PERRL - Neck Neck exam general surgery: Present: supple, trachea midline. Absent: lymphadenopathy - Respiratory Respiratory exam: Present: CTAB. Absent: accessory muscle use, rales, rhonchi, wheezes - Cardiovascular Cardiovascular exam: Present: RRR, +S1, +S2. Absent: diastolic murmur, gallop, rubs, systolic murmur - GI/Abdominal GI/Abdominal exam: Present: normal bowel sounds, soft, no peritoneal signs. Absent: distended, tenderness - Extremities Exam Extremities exam: Present: warm, radial pulses palpable and symmetrical. Absent: calf tenderness, cyanotic, pedal edema Additional comments: Right hand strength 3\5. - Neurological Exam Neurological exam: Present: CN II-XII intact, oriented X3, no focal deficits. Absent: pronater drift, facial droop, speech deficit - Skin Skin exam: Present: dry, intact Internal Medicine: Result - Labs CBC & Chem 7: 12/22/17 05:15 12/22/17 05:15 Labs: Short CBC 12/22/17 Range/Units 05:15 WBC 5.9 (4.3-11.1) K/mcL Hgb 11.6 (11.5-15.4) g/dL Hct 33.8 L (35.3-44.9) % Plt Count 399 (140-400) K/mcL Neutrophils # 3.9 (1.6-8.9) K/mcL BMP 12/22/17 05:15 Sodium 133 L Potassium 3.6 Chloride 99 Carbon Dioxide 26 BUN 13 Creatinine 0.64 Glucose 155 H Calcium 9.4 - ABG Interpretation ABG results: PT/INR, D-dimer PT 12.3 Seconds (9.4-12.1) H 12/22/17 05:15 Consult Discharge Plan - Plan Referrals: NONE,PCP [Primary Care Provider] -
[2017-12-23] MEDS: Aspirin Enteric Coated 81 MG Tablet PO SCH (09:30)
[2017-12-23] MEDS: Acetaminophen 325 MG TABLET PO PRN (09:30)
[2017-12-23] MEDS: Fenofibrate 54 MG TABLET PO SCH (09:31)
[2017-12-23] MEDS: amLODIPine 5 MG TABLET PO SCH (09:31)
--- NOTE | 2017-12-23 10:43 | Internal Med Progress Note ---
Addendum entered and electronically signed by Renate Nelson 12/23/17 13:51: I have personally performed a face to face evaluation on this patient. I have reviewed and agree with the care plan. Original Note: Date of Encounter: 12/23/17 Time of Encounter: 10:41 - Assessment and plan (1) Cerebrovascular accident Current Visit: Yes Status: Acute Assessment and plan: Improving. PT and OT and speech therapy to eval and treat. will follow progress. no new neurological deficits. f/u with neurologist as scheduled. Qualifiers: CVA mechanism: unspecified Qualified Code(s): I63.9 - Cerebral infarction, unspecified (2) Hypertension Current Visit: Yes Status: Chronic Assessment and plan: controlled with current meds. monitor BP. Qualifiers: Hypertension type: essential hypertension Qualified Code(s): I10 - Essential (primary) hypertension (3) Mixed hyperlipidemia Current Visit: Yes Status: Acute Assessment and plan: continue Lipitor. - Subjective Interval history: Participating well with therapy. Ambulating with front wheeled walker. Last bowel movement was this morning. Denies any pain or complaints at this time. No new neurological deficits. Maintaining appetite and hydration. wearing brace to right foot. able to make slight fist with right hand. Fine motor skills improving. Planning for discharge tomorrow. - Constitutional Vitals: Temp Pulse Resp BP Pulse Ox 97.5 F L 82 16 137/72 97 12/23/17 06:58 12/23/17 06:58 12/23/17 06:58 12/23/17 06:58 12/23/17 06:58 General appearance: Present: cooperative, A&O X 3, pleasant, no acute distress, answers questions appropriately - Head Head exam: Present: atraumatic, normocephalic - Eye Eye exam: Present: PERRL, conjuntiva pink, sclera anicteric Pupils: Present: PERRL - Neck Neck exam general surgery: Present: supple, trachea midline. Absent: lymphadenopathy - Respiratory Respiratory exam: Present: CTAB. Absent: accessory muscle use, rales, rhonchi, wheezes - Cardiovascular Cardiovascular exam: Present: RRR, +S1, +S2. Absent: diastolic murmur, gallop, rubs, systolic murmur - GI/Abdominal GI/Abdominal exam: Present: normal bowel sounds, soft, no peritoneal signs. Absent: distended, tenderness - Extremities Exam Extremities exam: Present: warm, radial pulses palpable and symmetrical. Absent: calf tenderness, cyanotic, pedal edema Additional comments: Right hand strength 3\5 - Neurological Exam Neurological exam: Present: CN II-XII intact, oriented X3, no focal deficits. Absent: pronater drift, facial droop, speech deficit - Skin Skin exam: Present: dry, intact Internal Medicine: Result - Labs CBC & Chem 7: 12/22/17 05:15 12/22/17 05:15 - ABG Interpretation ABG results: PT/INR, D-dimer PT 12.3 Seconds (9.4-12.1) H 12/22/17 05:15 Consult Discharge Plan - Plan Referrals: NONE,PCP [Primary Care Provider] -
[2017-12-24 06:28] VITALS: BP 143/72
[2017-12-24] MEDS: Fenofibrate 54 MG TABLET PO SCH (08:16)
[2017-12-24] MEDS: amLODIPine 5 MG TABLET PO SCH (08:16)
[2017-12-24] MEDS: Aspirin Enteric Coated 81 MG Tablet PO SCH (08:16)
--- NOTE | 2017-12-24 11:21 | Discharge Summary ---
Addendum entered and electronically signed by Renate Nelson 12/24/17 11:57: I have personally performed a face to face evaluation on this patient. I have reviewed and agree with the care plan. History and Exam by me shows: the patient is improving with right sided weakness and denies head ache or chest pain Advised pt and her the importance of regular follow up and monitoring and medication. PT snores and advised needs sleep study. Pt agrees to follow up Original Note: Orders not resulted at time of discharge: Pending orders 12/29/17 04:00 BMP [Basic Metabolic Panel] MO Complete Blood Count [HEME] MO PT/INR [Prothrombin Time INR] [COAG] MO 01/05/18 04:00 BMP [Basic Metabolic Panel] MO Complete Blood Count [HEME] MO PT/INR [Prothrombin Time INR] [COAG] MO 01/12/18 04:00 BMP [Basic Metabolic Panel] MO Complete Blood Count [HEME] MO PT/INR [Prothrombin Time INR] [COAG] MO Date of Encounter: 12/24/17 Time of Encounter: :19 - Discharge Diagnosis (1) Cerebrovascular accident Priority: Primary Status: Acute Qualifiers: CVA mechanism: unspecified Qualified Code(s): I63.9 - Cerebral infarction, unspecified (2) Hypertension Priority: Secondary Status: Chronic Comments: Controlled with current medication. Follow up with PCP. Monitor blood pressure. Qualifiers: Hypertension type: essential hypertension Qualified Code(s): I10 - Essential (primary) hypertension (3) Mixed hyperlipidemia Priority: Secondary Status: Acute Comments: Continue current meds follow up with PCP. Hospital course: Ms. Robertson is a 72 year old female Discharge discussed with: patient, family, nurse, social work - Time Spent with Patient Total time spent providing and/or coordinating discharge services: Less than 30 minutes - Discharge Medications Home Medications: Acetaminophen [Tylenol] 650 mg PO Q6HR PRN 11/29/17 [History] Aspirin Enteric Coated [Aspirin EC] 81 mg PO DAILY tablet. 11/29/17 [Rx] Atorvastatin [Lipitor] 80 mg PO HS 30 Days #60 tablet 12/24/17 [Rx] Clopidogrel [Plavix] 75 mg PO DAILY #30 tablet 12/24/17 [Rx] Fenofibrate [Tricor] 54 mg PO DAILY #30 tablet 12/24/17 [Rx] Lisinopril [Zestril] 5 mg PO DAILY #30 tablet 12/24/17 [Rx] amLODIPine [Norvasc] 10 mg PO DAILY #30 tablet 12/24/17 [Rx] Allergies/Adverse Reactions: Allergy/AdvReac Type Severity Reaction Status Date / Time No Known Allergies Allergy Verified 11/25/17 19:15 Date of admission: 11/29/17 15:59 Primary care physician: PCP NONE Consults: 11/29/17 17:31 Consult to Occupational Therapy [CONS] Routine Comment: eval Reason for Consult: eval Does patient have active BEDREST order?: No Is patient medically & hemodynamically stable?: Yes Consult to Physical Therapy [CONS] Routine Comment: eval Reason for Consult: eval Does patient have active BEDREST order?: No Is patient medically & hemodynamically stable?: Yes Consult to Recreational Therapy [CONS] Routine Comment: Consult to Apartment Maintenance [CONS] Routine Reason for SW Consult: d/c planning 11/29/17 17:36 Consult to Speech Therapy [CONS] Routine Comment: Evaluate, develop and implement POC Reason for Consult: eval Time Notified: 17:36 Call Completed: Yes 12/01/17 16:09 Consult to Psychology [CONS] Routine Consulting Provider: Monik Heaton Reason for Consult: Possible depression; adjustment disorder Call Completed: No 12/10/17 11:37 Consult to Physical Medicine/Rehab [CONS] Routine Reason for Consult: CVA Time Notified: 12:00 Call Completed: Yes Discharging clinician: Renate Nelson Anticipated date of discharge: 12/24/17 - Constitutional Vitals: Temp Pulse Resp BP Pulse Ox 97.6 F 74 16 143/72 96 12/24/17 06:27 12/24/17 06:27 12/24/17 06:27 12/24/17 06:27 12/24/17 06:27 General appearance: Present: cooperative, A&O X 3, pleasant, no acute distress, answers questions appropriately - Head Head exam: Present: atraumatic, normocephalic - Eye Eye exam: Present: PERRL, conjuntiva pink, sclera anicteric Pupils: Present: PERRL - Neck Neck exam general surgery: Present: supple, trachea midline. Absent: lymphadenopathy - Respiratory Respiratory exam: Present: CTAB. Absent: accessory muscle use, rales, rhonchi, wheezes - Cardiovascular Cardiovascular exam: Present: RRR, +S1, +S2. Absent: diastolic murmur, gallop, rubs, systolic murmur - GI/Abdominal GI/Abdominal exam: Present: normal bowel sounds, soft, no peritoneal signs. Absent: distended, tenderness - Extremities Exam Extremities exam: Present: warm, radial pulses palpable and symmetrical. Absent: calf tenderness, cyanotic, pedal edema Additional comments: Right hand strength 3\5 - Neurological Exam Neurological exam: Present: CN II-XII intact, oriented X3, no focal deficits. Absent: pronater drift, facial droop, speech deficit - Skin Skin exam: Present: dry, intact - Patient Status Disposition: Home, Self-Care Condition: Good Functional capacity at discharge: uses cane/walker Overall status at discharge: patient is not back to baseline - Discharge Instructions Instructions: Ischemic Stroke (GEN), Weakness (GEN) Follow Up With: NONE,PCP [Primary Care Provider] - - Diet and Activity Activity: as per physical therapy Diet: low fat, low cholesterol - Stroke Contraindication Rehab Services Not Assessed: Symptoms Resolved
== END 2017-12-24 12:35 | disposition home or self-care (01) | DRG 57 ==
LOC: INPGRE 15:59